=== PATIENT | female | born 1975 | race Caucasian/White ===

== ENCOUNTER 2022-12-26 15:49 | Emergency (ER) | payer MEDICARE, SELFPAY ==
[2022-12-26 15:56] VITALS: BP 176/98; PULSE 109; RESP 18; TEMP 36.8; O2SAT 100; BMI 28.9
[2022-12-26 16:00] VITALS: BP 176/98; PULSE 109; PULSE 98; RESP 14; RESP 20; O2SAT 94
--- NOTE | 2022-12-26 16:24 | ECG_ITS ---
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
--- NOTE | 2022-12-26 16:24 | XR_ITS ---
The [address] [address] Patient Name: LUCIO PARRA MRN: [id number] date: 1975 Sex: F Assigned Patient Location: ER Current Patient Location: ER Accession/Order Number: [id number] Exam Date: 12/26/2022 16:32 Report Date: 12/26/2022 16:52 At the request of: SHARYN MILNER Procedure: XR chest 1V EXAM: XR chest 1V HISTORY: cp COMPARISON: None. TECHNIQUE: AP view of the chest FINDINGS: The level of inspiration is suboptimal. There is no focal airspace consolidation. The cardiomediastinal silhouette is not enlarged. No evidence of pleural effusion or pneumothorax are identified. No acute osseous abnormality. IMPRESSION: No acute cardiopulmonary process. Electronically authenticated by: CALOS STEIN Date: 12/26/2022 16:52
--- NOTE | 2022-12-26 16:26 | ED_ITS ---
HPI - General Adult General Chief complaint: Seizure Stated complaint: FAST HEART RATE Time Seen by Provider: 12/26/22 16:24 Source: patient and family Mode of arrival: Wheelchair Limitations: no limitations History of Present Illness HPI narrative: Patient is a 39-year-old female who is presenting to the Emergency Room today with chief complaint of acute on chronic seizure. Patient is on multiple medications daily. Patient also has history of anxiety and panic attacks. Patient's significant other is at bedside. Patient takes BuSpar, clonidine, hydroxyzine, Lamictal, lisinopril, and Invega, Ingrezza. Patient is compliant with her medication. Patient's significant other is a main historian at bedside. Patient's been having more seizures this week than usual, but she's had this happened in the past as well. Patient had 2 or 3 seizures today. Patient will normally have 2 or 3 days a week where she does have a seizure. Patient has various types of seizures including tonic-clonic, focal, and absent's. Patient did not fall today. No head trauma. Patient has mild headache, mild nausea, mild chest pain, no tightness, no radiation of chest pain. No nausea, vomiting, diarrhea. Patient has no loss of urine or bowels and her pants. Patient states that she normally does not have any incontinence or bite her tongue during her seizures. . All systems are negative except as noted/marked. All systems reviewed and otherwise negative. . Nurses note and vital signs reviewed and patient is not hypoxic. General: The patient appears well and in no apparent distress. Patient is resting comfortably on cart. Patient is not toxic, lethargic, or listless Skin: Warm, dry, no pallor noted. There is no rash noted. No petechiae, purpura. Head: Normocephalic, atraumatic Eye: Normal conjunctiva, no drainage, EOMI. PERRL Ears, Nose, Mouth, and Throat: oral mucosa is moist. Nares patent. Mouth without vesicles. Cardiovascular: Regular Rate and Rhythm, no murmur, gallop, rub Respiratory: Patient is in no distress, no accessory muscle use, lungs are clear to auscultation, no wheezing, rales or rhonchi Back: non-tender, no CVA tenderness bilaterally to percussion. No CT LS midline pain GI: soft, no tenderness to palpation, no masses appreciated. No rebound, guarding, or rigidity noted. No flank pain bilateral, No distention Musculoskeletal: Patient has full range of motion of all of the extremities, no motor, sensory, or focal neurological deficits Neurological: A&O x3, normal speech, GCS 15 Psychiatric: Cooperative Related Data Home Medications Medication Instructions Recorded Confirmed buspirone 10 mg tablet 10 mg PO TID 12/26/22 12/26/22 clonidine HCl 0.1 mg tablet 0.1 mg PO DAILY 12/26/22 12/26/22 hydroxyzine pamoate 100 mg capsule 100 mg PO Q8H 12/26/22 12/26/22 lamotrigine 200 mg tablet 200 mg PO BID 12/26/22 12/26/22 (Lamictal) lisinopril 10 mg tablet 10 mg PO DAILY 12/26/22 12/26/22 paliperidone 6 mg tablet,extended 6 mg PO DAILY 12/26/22 12/26/22 release 24 hr (Invega) prednisone 5 mg tablet 5 mg PO DAILY 12/26/22 12/26/22 valbenazine 60 mg capsule 60 mg PO DAILY 12/26/22 12/26/22 (Ingrezza) Allergies Allergy/AdvReac Type Severity Reaction Status Date / Time lithium Allergy Intermediate Verified 12/26/22 16:01 Penicillins Allergy Intermediate Verified 12/26/22 16:01 Exam Constitutional: Vital Signs - 24 hr 12/26/22 15:56 12/26/22 16:00 12/26/22 16:00 Temperature 98.2 F Pulse Rate 98 H 109 H Pulse Rate [Monito r] 109 H Respiratory Rate 18 14 20 Blood Pressure 176/98 H Blood Pressure [Ri ght Arm] 176/98 H Pulse Oximetry 100 94 L Oxygen Delivery Me thod Room Air Course Vital Signs Vital signs: Vital Signs Temperature 98.2 F 12/26/22 15:56 Pulse Rate 109 H 12/26/22 15:56 Respiratory Rate 18 12/26/22 15:56 Blood Pressure 176/98 H 12/26/22 15:56 Pulse Oximetry 100 12/26/22 15:56 Oxygen Delivery Method Room Air 12/26/22 15:56 Temperature 98.2 F 12/26/22 15:56 Pulse Rate 109 H 12/26/22 16:00 Respiratory Rate 20 12/26/22 16:00 Blood Pressure 176/98 H 12/26/22 16:00 Pulse Oximetry 94 L 12/26/22 16:00 Oxygen Delivery Method Room Air 12/26/22 15:56 Medical Decision Making MDM Narrative Medical decision making narrative: Patient feels better after IV fluids and IV medication that has been given. Patient was given a prescription for 2 Klonopin 0.5 mg to use over the weekend t o help with anxiety and panic attacks. Patient's going back to [place] this and will call her neurologist on Thursday. We have called patient's neurologist from [place] twice, left 2 separate messages with no return phone call before 5 PM. EKG troponin show no acute changes, chest x-ray was negative. Dr Jennings His the neurologist in [place] that we have been calling Which is patient's neurologist no return phone call. Patient and significant other at bedside and no questions at discharge. Patient has not had a seizure in the Emergency Room. Patient felt better after IV Ativa n, which most likely help more with anxiety than seizure activity. Lab Data Lab results reviewed: Yes I reviewed the patient's lab results Labs: Lab Results 12/26/22 12/26/22 Range/Units 16:10 17:02 WBC 11.8 H (4.0-11.0) 10^3/uL RBC 4.98 (4.20-5.40) 10^6/uL Hgb 13.6 (12.0-16.0) g/dL Hct 41.5 (36.0-48.0) % MCV 83.3 (81.0-99.0) fL MCH 27.3 (26.7-34.0) pg MCHC 32.8 (29.9-35.2) g/dL RDW 14.5 (11.0-15.0) % Plt Count 227 (150-450) 10^3/uL MPV 10.0 (9.5-13.5) fL Neut % (Auto) 78.3 H (43.0-75.0) % Lymph % (Auto) 14.1 L (20.5-60.0) % Callahan % (Auto) 5.8 (1.7-12.0) % Eos % (Auto) 1.0 (0.9-7.0) % Baso % (Auto) 0.3 (0.2-2.0) % Neut # (Auto) 9.3 H (1.4-6.5) 10^3/uL Lymph # (Auto) 1.7 (1.2-3.8) 10^3/uL Callahan # (Auto) 0.7 (0.3-0.8) 10^3/uL Eos # (Auto) 0.1 (0.0-0.7) 10^3/uL Baso # (Auto) 0.0 (0.0-0.1) 10^3/uL Sodium 142 (136-145) mmol/L Potassium 4.0 (3.5-5.1) mmol/L Chloride 104 (98-107) mmol/L Carbon Dioxide 32.2 H (21.0-32.0) mmol/L Anion Gap 9.8 BUN 15.0 (7.0-18.0) mg/dL Creatinine 1.55 H (0.55-1.02) mg/dL Est GFR ( Amer) 43 L (>=60) Est GFR (Non-Af Amer) 36 L (>=60) BUN/Creatinine Ratio 9.7 Glucose 94 (74-106) mg/dL Calcium 10.3 H (8.5-10.1) mg/dL Total Bilirubin 0.5 (0.2-1.0) mg/dL AST 40 H (15-37) U/L ALT 69 H (14-59) U/L Troponin I High Sens 4.0 (4.0-51.3) pg/mL Total Protein 7.1 (6.4-8.2) g/dL Albumin 4.0 (3.4-5.0) g/dL Globulin 3.1 g/dL Albumin/Globulin Ratio 1.3 Lipase 135.0 (73.0-393.0) U/L ECG Data Attestation: I personally reviewed and interpreted this ECG as follows: Interpretation: EKG interpretation. Sinus tachycardia 112. Normal axis deviation. No acute ST elevation, no acute ectopy. QTC of 395 Discharge Plan Discharge Chief Complaint: Seizure Clinical Impression: Anxiety, Generalized seizure, Seizure disorder, Chest pain Patient Disposition: Home, Self-Care Condition: Good Prescriptions / Home Meds: No Action lisinopril 10 mg tablet 10 mg PO DAILY lamotrigine [Lamictal] 200 mg tablet 200 mg PO BID hydroxyzine pamoate 100 mg capsule 100 mg PO Q8H buspirone 10 mg tablet 10 mg PO TID prednisone 5 mg tablet 5 mg PO DAILY Ingrezza 60 mg capsule 60 mg PO DAILY paliperidone [Invega] 6 mg tablet extended release 24hr 6 mg PO DAILY clonidine HCl 0.1 mg tablet 0.1 mg PO DAILY Instructions: Chest Pain (ED), Recurrent Seizures in Adults (ED), Anxiety (ED) Additional Instructions: We have called her neurologist over 1 hour from the Emergency Room and left 2 messages with no return phone call. Follow-up with your neurologist on Thursday when he return to [place]. 2 tablets of Klonopin 0.5 mg tablets have been written for you to help with anxiety until Thursday. Continue to take Medication as prescribed. Stand Alone Forms: Portal Instructions Referrals: Physician,Non-Staff, MD [Primary Care Provider] - 1 week
--- NOTE | 2022-12-26 16:32 | PC.NURSE ---
THIS NURSE IN WITH DR MILNER TO EXAMINE PATIENT
[2022-12-26] MEDS: LORAZEPAM 2 MG/ML 1 ML VIAL 1 MG IV (16:40)
[2022-12-26] MEDS: ONDANSETRON PF 4 MG/2 ML VIAL IV (16:40)
[2022-12-26] MEDS: KETOROLAC TROMETHAMINE 30 MG/ML VIAL IVP (16:41)
[2022-12-26] MEDS: ASPIRIN 81 MG TAB.CHEW 162 MG PO (16:49)
[2022-12-26 16:52] LABS: Alanine Aminotransferase 69 U/L (14-59); Albumin Globulin Ratio 1.3; Alkaline Phosphatase 97 U/L (46-116); Anion Gap 9.8; Aspartate Amino Transferase 40 U/L (15-37); BUN Creatinine Ratio 9.7; Bilirubin Total 0.5 mg/dL (0.2-1.0); Calcium 10.3 mg/dL (8.5-10.1); Carbon Dioxide 32.2 mmol/L (21.0-32.0); Chloride 104 mmol/L (98-107); Estimated GFR (African America 43 (>=60); Estimated GFR (Non-African Ame 36 (>=60); Globulin 3.1 g/dL; Glucose 94 mg/dL (74-106); Sodium 142 mmol/L (136-145); Total Protein 7.1 g/dL (6.4-8.2)
--- NOTE | 2022-12-26 17:03 | PC.NURSE ---
WHEN THIS NURSE AND DR MILNER INTO SEE PATIENT AND SPOUSE SPOUSE STATES THE SHE HAS HAD 3 SEIZURES TODAY PT STATES SHE IS HAVING A SEIZURE NOW WE TALK TO PATIENT SHE STATES SHE HAS NO RESCUE MEDICATIONS AT HOME FOR HER HO SEIZURE STATES THE SEIZURE ARE WORSE THAN HER TYPICAL SEIZURE ACTIVITY DENIES LOSS OF BOWELS OR BLADDER DURING HER SEIZURE ACTIVITY SHE HAS A NEW NEUROLOGIST THAT SHE HAS NOT SEEN YET NAMED DR BRASHER AND WAS TOLD BY HIM THAT WHEN SHE GOES TO THE ER SHE CAN STATE HE IS HER NEUROLOGIST PT IS FROM [place] AND VISITING HER FAMILY AND WILL BE HERE TILL NEXT THURSDAY PT ADMITS TO HO ANXIETY AND PANIC ATTACKS T DOES ADMIT UPON FURTHER QUESTIONING THAT THESE ARE MORE LIKE PANIC ATTACKS VS SEIZURES PT THEN ASKS CAN I JUST HAVE A COUPLE OF ATIVAN FOR HOME DR MILNER TALKS ABOUT POSSIBLY KLONOPIN PT THEN STATES YES KLONOPIN HAS HELPED IN THE PAST SHE THEN STATES HER SEIZURES TEND TO HAPPEN WHEN HER BP IS UP
[2022-12-26 17:19] LABS: Basophils Percent Auto 0.3 % (0.2-2.0); Eosinophils Absolute Auto 0.1 10^3/uL (0.0-0.7); Hematocrit 41.5 % (36.0-48.0); Hemoglobin 13.6 g/dL (12.0-16.0); Immature Granulocytes Abs Auto 0.06 10^3/uL (0.00-0.03); Immature Granulocytes Pct Auto 0.5 % (0.0-0.5); Lymphocytes Absolute Auto 1.7 10^3/uL (1.2-3.8); Lymphocytes Percent Auto 14.1 % (20.5-60.0); Mean Corpuscular HGB Conc 32.8 g/dL (29.9-35.2); Mean Corpuscular Hemoglobin 27.3 pg (26.7-34.0); Mean Corpuscular Volume 83.3 fL (81.0-99.0); Monocytes Absolute Auto 0.7 10^3/uL (0.3-0.8); Monocytes Percent Auto 5.8 % (1.7-12.0); Neutrophils Absolute Auto 9.3 10^3/uL (1.4-6.5); Neutrophils Percent Auto 78.3 % (43.0-75.0); Platelet Count 227 10^3/uL (150-450); Red Blood Count 4.98 10^6/uL (4.20-5.40); Red Cell Distribution Width 14.5 % (11.0-15.0); White Blood Count 11.8 10^3/uL (4.0-11.0)
[2022-12-26 17:57] VITALS: BP 135/84; PULSE 78; RESP 18
== END 2022-12-26 18:02 | disposition home or self-care (01) ==
PROVIDERS: Emergency Provider Emergency Medicine
DX: G40.909 Epilepsy, unspecified, not intractable, without status epilepticus (principal); F41.9 Anxiety disorder, unspecified; R07.9 Chest pain, unspecified; Z79.899 Other long term (current) drug therapy
CPT/HCPCS: 36415; 71045; 80053; 83690; 84484; 85025; 93005; 96374; 96375; 99285

== ENCOUNTER 2023-09-18 08:12 | Outpatient (OUT) | payer MEDICARE, MEDICAID, SELFPAY ==
[2023-09-18 10:09] LABS: Alanine Aminotransferase 19 U/L (14-59); Albumin Globulin Ratio 0.8; Albumin Level 2.9 g/dL (3.4-5.0); Alkaline Phosphatase 149 U/L (46-116); Anion Gap 10.6; Aspartate Amino Transferase 10 U/L (15-37); BUN Creatinine Ratio 9.4; Bilirubin Total 0.4 mg/dL (0.2-1.0); Calcium 9.1 mg/dL (8.5-10.1); Carbon Dioxide 30.5 mmol/L (21.0-32.0); Chloride 107 mmol/L (98-107); Chol HDL Ratio 3.4; Cholesterol 177 mg/dL (<=200); Estimated GFR (African America 54 (>=60); Estimated GFR (Non-African Ame 45 (>=60); Globulin 3.6 g/dL; Glucose 110 mg/dL (74-106); HDL Cholesterol 52 mg/dL (40-60); LDL Cholesterol Calculated 105.2 mg/dL; Potassium 4.1 mmol/L (3.5-5.1); Sodium 144 mmol/L (136-145); Thyroid Stimulating Hormone 1.296 uIU/mL (0.358-3.740); Total Protein 6.5 g/dL (6.4-8.2); Triglycerides 99 mg/dL (<=150); VLDL CHOLESTEROL 19.8 mg/dL
== END 2023-09-18 08:13 | disposition home or self-care (01) ==
LOC: LAB 08:17
DX: Z79.899 Other long term (current) drug therapy (principal)
CPT/HCPCS: 36415; 80053; 80061; 84436; 84443

== ENCOUNTER 2024-04-09 11:39 | Emergency (ER) | payer MEDICARE, MEDICAID, SELFPAY ==
[2024-04-09 11:50] VITALS: BP 157/91; PULSE 122; TEMP 37; O2SAT 97; BMI 48.6
--- OUTSIDE RECORDS SUMMARY | 2024-04-09 11:59 | XMS_ITS | CCD ---
Author Organization [facility] ion [facility] Care Team Providers Care Tap Out Operator Name Role Phone [facility] Provide r DO Valentin Rangel Emergency Provider MD Julito Wilde Admit Provider MD Julito Wilde Attending Provider [phone] [facility] Provide r MD Julito Wilde Attending Provider [phone] [facility] Provide r MD Julito Wilde Attending Provider [phone] NO FAMILY, PHYSICIAN Primary Care Provider Unava MD Reina Watkins Emergency Provider [phone] [facility] Provide r MD Julito Wilde Attending Provider [phone] DO Garrett Gee Attending Provider [phone] GARRETT GEE Attending Unavailable GARRETT GEE Referring Unavailable LALO PECK Attending Unavailable LUCIO BROWN Attending Unavailable NO FAMILY, PHYSICIAN Primary Care Unavailable Reina Unger Admitting Unavailable Reina Unger Attending Unavailable Garrett Gee Admitting Unavailab le Garrett Gee Attending Unavailab le NO FAMILY, PHYSICIAN Primary Care Unavailable Julito Wilde Admitting Unavailab le Julito Wilde Attending Unavailab le [facility] Unav ailable Julito Wilde Admitting [facility] Julito Wilde Attending [facility] Unav ailable Allergies Allergy Classification Reported Allergen(s) Allergy Type Date of Onset Reaction(s) Facility (5 sources) [place]; Translations: [lithium] Drug Allergy 4 Kidney Failure [facility] (2 sources) Penicillin Drug Allergy 4 [facility] (3 sources) Penicillins; Translations: [Penicillins] Allergy to substance 4 [facility] Medications Current Medications Medication Drug Class(es) Dates Sig (Normalized) Sig (Original) acetaminophen 500 mg oral tablet (4 sources) Start: 2023 take 500 mg by mouth every six hours Acetaminophen Active 500 MG PO Every 6 hours 2023 12:00am [id number] 200 actuat albuterol 0.09 mg/actuat metered dose inhaler (5 sources) beta2-Adrenergic Agonist Start: 10-08-2023 take 1 puff(s) by inhalation every four hours Albuterol Sulfate Active 2 PUFF INHALATION Every 4 hours October 08, 2023 12:00am atomoxetine 25 mg oral capsule (6 sources) Norepinephrine Reuptake Inhibitor Start: 10-08-2023 take 25 mg by mouth once daily Atomoxetine Active 25 MG PO Daily October 08, 2023 12:00am azelastine hydrochloride 0.137 mg/actuat metered dose nasal spray (5 sources) Histamine-1 Receptor Antagonist Start: 10-08-2023 Azelastine Active 1 SPRAY INTRANASAL Twice daily October 08, 2023 12:00am 120 actuat budesonide 0.08 mg/actuat / formoterol fumarate 0.0045 mg/actuat metered dose inhaler (4 sources) Corticosteroid, beta2-Adrenergic Agonist Start: 2023 Budesonide-Formote rol Active INHALATION 2023 12:00am busPIRone hydrochloride 5 mg oral tablet (11 sources) Start: 10-11-2023 take 5 mg by mouth twice daily Buspirone Active 5 MG PO Twice daily 15 October 11, 2023 12:00am Start: 10-08-2023 take 15 mg by mouth four times daily Buspirone Active 15 MG PO Four times daily October 08, 2023 12:00am cetirizine hydrochloride 10 mg oral tablet (4 sources) Histamine-1 Receptor Antagonist Start: 2023 take 1 tablet by mouth once daily Cetirizine (Allergy Relief (Cetirizine)) 10 mg tablet Active 10 MG PO daily 14 2023 12:00am 0.5 ml dulaglutide 1.5 mg/ml auto-injector (6 sources) GLP-1 Receptor Agonist Start: 10-08-2023 Dulaglutide (Trulicity) 0.75 mg/0.5 mL pen injector Active 0.75 MG SUBCUT every week October 08, 2023 12:00am fluticasone propionate 0.05 mg/actuat metered dose nasal spray (4 sources) Corticosteroid Start: 2023 take 1 spray(s) nasal route twice daily Fluticasone Propionate (Flonase Allergy Relief) 50 mcg/actuation spray,suspension Active 1 SPRAY INTRANASAL Twice daily 2023 12:00am administer 1 spray into each nostril gabapentin 600 mg oral tablet (15 sources) Anti-epileptic Agent Start: 2023 take 600 mg by mouth three times daily Gabapentin Active 600 MG PO Three times daily 2023 12:00am Start: 10-11-2023 End: 2023 take 400 mg by mouth three times daily Gabapentin Discontinued 400 MG PO Three times daily October 11, 2023 12:00am 2023 12:39pm Start: 10-08-2023 End: 10-11-2023 take 200 mg by mouth three times daily Gabapentin Discontinued 200 MG PO Three times daily October 08, 2023 12:00am October 11, 2023 8:16am hydroxychloroquine sulfate 200 mg oral tablet (6 sources) Antimalarial, Antirheumatic Agent Start: 10-08-2023 take 200 mg by mouth twice daily Hydroxychloroquine Active 200 MG PO Twice daily October 08, 2023 12:00am hydrOXYzine pamoate 50 mg oral capsule (4 sources) Antihistamine Start: 2023 take 50 mg by mouth three times daily Hydroxyzine Pamoate Active 50 MG PO Three times daily 2023 12:00am lamoTRIgine 200 mg oral tablet (6 sources) Mood Stabilizer, Anti-epileptic Agent Start: 10-08-2023 take 200 mg by mouth twice daily Lamotrigine Active 200 MG PO Twice daily October 08, 2023 12:00am nystatin [id number] unt/ml oral suspension (6 sources) Polyene Antifungal Start: 11-06-2023 take 1 mL by mouth four times daily Nystatin Active 5 ML PO Four times daily 140 7 November 06, 2023 12:00am swish and swallow Start: 11-06-2023 Nystatin Activ e 1 APPLIC TOPICAL Twice daily November 06, 2023 12:00am to rash omeprazole 40 mg delayed release oral capsule (6 sources) Proton Pump Inhibitor Start: 10-08-2023 take 40 mg by mouth once daily Omeprazole Active 40 MG PO Daily October 08, 2023 12:00am prazosin 5 mg oral capsule (6 sources) alpha-Adrenergic Nikkie Start: 10-08-2023 take 5 mg by mouth three times daily Prazosin Active 5 MG PO Three times daily October 08, 2023 12:00am predniSONE 5 mg oral tablet (6 sources) Start: 10-08-2023 take 5 mg by mouth once daily Prednisone Active 5 MG PO Daily October 08, 2023 12:00am triamcinolone acetonide 1 mg/ml topical cream (10 sources) Corticosteroid Start: 10-10-2023 Triamcinolone Acetonide Active 1 APPLIC TOPICAL Twice daily 1 October 10, 2023 12:00am Start: 10-08-2023 Triamcinolone Acetonide Active 1 APPLIC TOPICAL Twice daily October 08, 2023 12:00am Valbenazine (6 sources) Start: 10-08-2023 take 1 capsule by mo uth once daily Valbenazine (Ingrezza) 60 mg capsule Active 60 MG PO Daily October 08, 2023 12:00am Problems Active Problems Problem Classification Problem Date Documented Da te Episodic/Chronic Mood disorders (10 sources) Major depressive disorder; Translations: [Major depressive disorder, single episode, unspecified] Onset: 10-08-2023 10-08-2023 Chronic Mycoses (6 sources) Candidal stomatitis; Translations: [Candidiasis of mouth] 11-06-2023 Episodic Other nervous system disorders (1 source) Ataxia, unspecified; Translations: [Ataxia, unspecified] Onset: 02-01-2024 Episodic Other upper respiratory disease (2 sources) Allergic rhinitis, unspecified; Translations: [Allergic rhinitis, cause unspecified] 2023 Chronic Other upper respiratory disease (3 sources) Nasal congestion; Translations: [Other disease of nasal cavity and sinuses] 2023 Episodic Past or Other Problems Problem Classification Problem Date Documented Da te Episodic/Chronic Residual codes; unclassified (1 source) Localized edema; Translations: [Localized edema] Onset: 12-21-2023 Episodic Unclassified (2 sources) Lower extremity edema 12-21-2023 Results Test Name Value Interpretation Reference Range Facility MR head/brain wo/w conon MR head/brain wo/w con [facility] [place] [address] MRI Report Signed Patient: Lucio Gonzalez MR#: [id number] 16 : 1975 Acct:[id number] Age/Sex: 48 / F ADM Date: 02/01/24 Loc: MR Room: Type: [facility] Attending Dr: Garrett Gee DO Copies to: Garrett Gee DO Ordering Provider: Garrett Gee DO Date of Service: 02/01/24 MR/MR head/brain wo/w con: R27.0, G40.909 MR head/brain wo/w con 02/01/2024 8:04 PM SIGN AND SYMPTOMS: Memory loss, seizures PROTOCOL: Multiplanar multisequence MR images of brain were obtained with and without IV contrast CONTRAST: 20 mL of intravenous ProHance COMPARISON: None. FINDINGS: Images are degraded by patient motion. Extra axial spaces: Age appropriate. Hemorrhage: None. Ventricular system: Within normal limits. Basal cisterns: Within normal limits and not effaced. Cerebral parenchyma: Normal in signal. Midline shift: None.. Cerebellum: Within normal limits. Brainstem: Within normal limits. OTHER: Calvarium: Normal marrow signal. Vascular system: Satisfactory flow voids within the anterior and posterior circulation. Visualized Paranasal sinuses: Within normal limits. Visualized Orbits: Within normal limits. Visualized upper cervical spine: Within normal limits. Sella and skull base: Within normal limits. MR/MR head/brain wo/w con IMPRESSION: No acute intracranial pathology or abnormal postcontrast enhancement. Images are degraded by patient motion. Impression dictated by: Fly Pierce M.D.02/02/2024 12:16 PM Dictation Location: [place] [address] Transcribed By: HARMAN 02/02/24 1216 Dictated By: Fly Pierce II, MD 02/02/24 1208 Signed By: 02/02/24 1216 Normal [facility] Alanine aminotransferase [En zymatic activity/volume] in Serum or PlasmaOrdered By: Reina Unger on 12-21-2023 ALT [Catalytic activity/Vol] 23 U/L Normal 7-52 [facility] Comment on above: Performed By: #### C BC, CMP, BNP, CK, HS TROP #### [facility] [address] [place] [address] [place] Albumin [Mass/volume] in Ser um or Plasma by Bromocresol green (BCG) dye binding methoOrdered By: Reina Unger on 12-21-2023 Albumin BCG dye [Mass/Vol] 4.0 g/dL 3.5-5.7 [facility] Alkaline phosphatase [Enzyma tic activity/volume] in Serum or PlasmaOrdered By: Reina Unger on 12-21-2023 ALP [Catalytic activity/Vol] 118 U/L High 34-104 [facility] Comment on above: Performed By: #### C BC, CMP, BNP, CK, HS TROP #### [facility] [address] [place] [address] Aspartate aminotransferase [ Enzymatic activity/volume] in Serum or PlasmaOrdered By: Reina Unger on 12-21-2023 AST [Catalytic activity/Vol] 25 U/L Normal 13-39 [facility] Comment on above: Performed By: #### C BC, CMP, BNP, CK, HS TROP #### [facility] [address] [place] [address] [place] Automated basophil %Ordered By: Reina Unger on 12-21-2023 Basophils/100 WBC (Bld) 0.7 % Normal . [facility] Comment on above: Performed By: #### C BC, CMP, BNP, CK, HS TROP #### [address] Automated basophil countOrde red By: Reina Unger on 12-21-2023 Basophils (Bld) [#/Vol] 0.1 10*3/uL Normal 0.0-0.2 [facility] Comment on above: Result Comment: PERF ORMED BY: [place] [address] PATHOLOGIST STRAIGHT TOOTH GEAR GENERATOR OPERATOR MIKI PEPPER M.D. Performed By: #### C BC, CMP, BNP, CK, HS TROP #### [address] Automated blood monocyte cou ntOrdered By: Reina Unger on 12-21-2023 Monocytes (Bld) [#/Vol] 0.6 10*3/uL Normal 0.0-0.8 [facility] Comment on above: Performed By: #### C BC, CMP, BNP, CK, HS TROP #### [address] Automated eosinophil %Ordere d By: Reina Unger on 12-21-2023 Eosinophils/100 WBC (Bld) 0.5 % Normal . [facility] Comment on above: Performed By: #### C BC, CMP, BNP, CK, HS TROP #### [address] Automated eosinophil countOr dered By: Reina Unger on 12-21-2023 Eosinophils (Bld) [#/Vol] 0.0 10*3/uL Normal 0.0-0.45 [facility] Comment on above: Performed By: #### C BC, CMP, BNP, CK, HS TROP #### [address] Automated epithelial cells c ount in urine sediment (number/area)Ordered By: Reina Unger on 12-21-2023 Epithelial cells Auto (Urine sed) [#/Area] 3-4 [HPF] High 0-2 [facility] Automated monocyte %Ordered By: Reina Unger on 12-21-2023 Monocytes/100 WBC (Bld) 7.1 % Normal . [facility] Comment on above: Performed By: #### C BC, CMP, BNP, CK, HS TROP #### [address] Automated neutrophil %Ordere d By: Reina Unger on 12-21-2023 Neutrophils/100 WBC (Bld) 75.9 % Normal . [facility] Comment on above: Performed By: #### C BC, CMP, BNP, CK, HS TROP #### [address] BNP ser/plasOrdered By: Reina Unger on 12-21-2023 Natriuretic peptide B (Bld) [Mass/Vol] 16.0 pg/mL Normal 5-100 [facility] Comment on above: Result Comment: PERF ORMED BY: [place] [address] PATHOLOGIST STRAIGHT TOOTH GEAR GENERATOR OPERATOR MIKI PEPPER M.D. Performed By: #### C BC, CMP, BNP, CK, HS TROP #### [address] Bacteria [Presence] in Urine by AutomatedOrdered By: Reina Unger on 12-21-2023 Bacteria Auto Ql (U) 1+ [HPF] High None Seen [facility] Bilirubin Test strip Ql (U)O rdered By: Reina Unger on 12-21-2023 Bilirubin Ql (U) Negative Negative [facility] Bilirubin.total [Mass/volume ] in Serum or PlasmaOrdered By: Reina Unger on 12-21-2023 Bilirubin [Mass/Vol] 0.7 mg/dL Normal 0.3-1.0 [facility] Comment on above: Performed By: #### C BC, CMP, BNP, CK, HS TROP #### [address] Calcium [Mass/volume] in Ser um or PlasmaOrdered By: Reina Unger on 12-21-2023 Calcium [Mass/Vol] 9.5 mg/dL Normal 8.6-10.3 [facility] Comment on above: Performed By: #### C BC, CMP, BNP, CK, HS TROP #### [address] Carbon dioxide, total [Moles /volume] in Serum or PlasmaOrdered By: Reina Unger on 12-21-2023 CO2 [Moles/Vol] 28.8 mmol/L Normal 21.0-31.0 [facility] Comment on above: Performed By: #### C BC, CMP, BNP, CK, HS TROP #### [address] Chloride [Moles/volume] in S loreta or PlasmaOrdered By: Reina Unger on 12-21-2023 Chloride [Moles/Vol] 102 mmol/L Normal 98-107 [facility] Comment on above: Performed By: #### C BC, CMP, BNP, CK, HS TROP #### [address] Color of Urine by AutoOrdere d By: Reina Unger on 12-21-2023 Color (U) Yellow Normal Yellow [facility] Comment on above: Order Comment: Name Collection Type:: Clean-Voided Midstream Performed By: #### A DDONUAPLUS #### [address] Complete Blood Count Auto Di ffon 12-21-2023 Mean Corpuscular HGB Conc 32.6 g/dL Normal 32.0-35.0 [facility] Comment on above: Performed By: #### C BC, CMP, BNP, CK, HS TROP #### [place] [address] [place] Monocytes/100 WBC (Bld) 17.43 % Normal 0.00-20.00 [facility] Comment on above: Performed By: #### C BC, CMP, BNP, CK, HS TROP #### [address] NRBC% 0.1 /100{WBC} Normal 0-0.5 [facility] Comment on above: Performed By: #### C BC, CMP, BNP, CK, HS TROP #### [facility] [address] Comprehensive Metabolic Pane mariama 12-21-2023 Albumin [Mass/Vol] 4.0 g/dL Normal 3.5-5.7 [facility] Comment on above: Performed By: #### C BC, CMP, BNP, CK, HS TROP #### [address] Creatinine Clr Calc Pharmacy 74.05 Normal [facility] Comment on above: Result Comment: PERF ORMED BY: [place] [address] PATHOLOGIST STRAIGHT TOOTH GEAR GENERATOR OPERATOR MIKI PEPPER M.D. Performed By: #### C BC, CMP, BNP, CK, HS TROP #### [address] GFR/1.73 sq M.predicted MDRD (S/P/Bld) [Vol rate/Area] 44.218 mL/min/{1.73_m2} Normal [facility] Comment on above: Performed By: #### C BC, CMP, BNP, CK, HS TROP #### [address] Creatine kinase [Enzymatic a ctivity/volume] in Serum or PlasmaOrdered By: Reina Unger on 12-21-2023 CK [Catalytic activity/Vol] 89 U/L Normal 30-223 [facility] Comment on above: Performed By: #### C BC, CMP, BNP, CK, HS TROP #### [address] Creatinine [Mass/volume] in Serum or PlasmaOrdered By: Reina Unger on 12-21-2023 Creatinine [Mass/Vol] 1.45 mg/dL High 0.60-1.20 [facility] Comment on above: Performed By: #### C BC, CMP, BNP, CK, HS TROP #### [place] [address] [place] Dipstick and Microscopicon 0 12-21-2023 Appearance (U) Clear Normal Clear [facility] Comment on above: Order Comment: Name Collection Type:: Clean-Voided Midstream Performed By: #### A DDONUAPLUS #### [place] [address] [place] Bacteria,Urine 1+ High None Seen [facility] Comment on above: Order Comment: Name Collection Type:: Clean-Voided Midstream Performed By: #### A DDONUAPLUS #### [address] Bilirubin,Urine Negative Normal Negative [facility] Comment on above: Order Comment: Name Collection Type:: Clean-Voided Midstream Performed By: #### A DDONUAPLUS #### [address] Glucose Ql (U) >=1000 High Normal [facility] Comment on above: Order Comment: Name Collection Type:: Clean-Voided Midstream Performed By: #### A DDONUAPLUS #### [place] [address] [place] Hyaline Casts,Urine 0-8 Normal 0-8 [facility] Comment on above: Order Comment: Name Collection Type:: Clean-Voided Midstream Result Comment: PERF ORMED BY: [place] [address] PATHOLOGIST STRAIGHT TOOTH GEAR GENERATOR OPERATOR MIKI PEPPER M.D. Performed By: #### A DDONUAPLUS #### [address] Ketones Ql (U) Negative Normal Negative [facility] Comment on above: Order Comment: Name Collection Type:: Clean-Voided Midstream Performed By: #### A DDONUAPLUS #### [place] [address] [place] Leukocyte esterase Test strip Ql (U) Negative Normal Negative [facility] Comment on above: Order Comment: Name Collection Type:: Clean-Voided Midstream Performed By: #### A DDONUAPLUS #### [address] Nitrite,Urine Negative Normal Negative [facility] Comment on above: Order Comment: Name Collection Type:: Clean-Voided Midstream Performed By: #### A DDONUAPLUS #### [address] Occult Blood,Urine Trace High Negative [facility] Comment on above: Order Comment: Name Collection Type:: Clean-Voided Midstream Result Comment: PERF ORMED BY: [place] [address] PATHOLOGIST STRAIGHT TOOTH GEAR GENERATOR OPERATOR MIKI PEPPER M.D. Performed By: #### A DDONUAPLUS #### [address] Protein,Urine Negative Normal Negative [facility] Comment on above: Order Comment: Name Collection Type:: Clean-Voided Midstream Performed By: #### A DDONUAPLUS #### [place] [address] [place] RBC,Urine 3-4 Normal 0-4 [facility] Comment on above: Order Comment: Name Collection Type:: Clean-Voided Midstream Performed By: #### A DDONUAPLUS #### [place] [address] [place] Specificy [place],Urine 1.016 Normal 1.001-1.030 [facility] Comment on above: Order Comment: Name Collection Type:: Clean-Voided Midstream Performed By: #### A DDONUAPLUS #### [place] [address] [place] Squamous Epithelial Cell,Urine 3-4 High 0-2 [facility] Comment on above: Order Comment: Name Collection Type:: Clean-Voided Midstream Performed By: #### A DDONUAPLUS #### [place] [address] [place] Urobilinogen,Urine Normal Normal Normal [facility] Comment on above: Order Comment: Name Collection Type:: Clean-Voided Midstream Performed By: #### A DDONUAPLUS #### [place] [address] [place] WBC,Urine 3-4 Normal 0-4 [facility] Comment on above: Order Comment: Name Collection Type:: Clean-Voided Midstream Performed By: #### A DDONUAPLUS #### [facility] [address] [place] [address] ECG 12 lead ECGon 12-21-2023 ECG 12 lead ECG [facility] [place] [address] [place] [address] Electrocardiograph Report Signed Patient: Lucio Gonzalez MR#: [id number] 16 : 1975 Acct:[id number] Age/Sex: 48 / F ADM Date: 12/21/23 Loc: ER Room: Type: [facility] ER Attending Dr: Ordering Provider: Reina Unger MD Date of Service: 12/21/23 ECG/ECG 12 lead ECG: Extremity Problem, Nontraumatic Copies to: Test Reason : Blood Pressure : 128/071 mmHG Vent. Rate : 112 BPM Atrial Rate : 112 BPM P-R Int : 138 ms QRS Dur : 074 ms QT Int : 360 ms P-R-T Axes : 051 033 064 degrees QTc Int : 491 ms Sinus tachycardia Low voltage QRS Cannot rule out Anterior infarct , age undetermined Abnormal ECG When compared with ECG of 09-OCT-2023 10:05, Minimal criteria for Anterior infarct are now present Confirmed by REINA UNGER MD ([id number]) on 12/21/2023 3:04:15 PM Referred By: Electronically Signed By:REINA UNGER MD Transcribed By: MUS Signed By Reina Unger MD 12/21/23 1504 Normal [facility] Erythrocyte distribution wid th [Ratio] by Automated countOrdered By: Reina Unger on 12-21-2023 Erythrocyte distribution width (RBC) [Ratio] 16.2 % High 11.9-15.3 [facility] Comment on above: Performed By: #### C BC, CMP, BNP, CK, HS TROP #### [facility] [address] [place] [address] Erythrocytes [#/area] in Uri ne sediment by Automated countOrdered By: Reina Unger on 12-21-2023 RBC Auto (Urine sed) [#/Area] 3-4 [HPF] 0-4 [facility] Erythrocytes [#/volume] in B lood by Automated countOrdered By: Reina Unger on 12-21-2023 RBC (Bld) [#/Vol] 5.64 10*6/uL High 3.60-5.00 [facility] Comment on above: Performed By: #### C BC, CMP, BNP, CK, HS TROP #### [address] Glucose [Mass/volume] in Ser um or PlasmaOrdered By: Reina Unger on 12-21-2023 Glucose [Mass/Vol] 333 mg/dL High 70-100 [facility] Comment on above: ADA recommended refe rence rangeRandom Glucose Reference Range is dependent on time and content of last meal. Glucose of more than 200 mg/dL in a nonstressed, ambulatory subject supports the diagnosis of Diabetes Mellitus. Result Comment: [place] om Glucose Reference Range is dependent on time and content of last meal. Glucose of more than 200 mg/dL in a nonstressed, ambulatory subject supports the diagnosis of Diabetes Mellitus. ADA recommended reference range Performed By: #### C BC, CMP, BNP, CK, HS TROP #### [address] Hematocrit [Volume Fraction] of Blood by Automated countOrdered By: Reina Unger on 12-21-2023 Hematocrit (Bld) [Volume fraction] 43.3 % Normal 34.0-46.4 [facility] Comment on above: Performed By: #### C BC, CMP, BNP, CK, HS TROP #### [address] Hemoglobin [Mass/volume] in BloodOrdered By: Reina Unger on 12-21-2023 Hemoglobin (Bld) [Mass/Vol] 14.1 g/dL Normal 11.8-15.4 [facility] Comment on above: Performed By: #### C BC, CMP, BNP, CK, HS TROP #### [address] Ketones Auto test strip (U) [Mass/Vol]Ordered By: Reina Unger on 12-21-2023 Ketones (U) [Mass/Vol] Negative Negative [facility] - UrinalysisOrder ed By: Reina Unger on 12-21-2023 Hyaline casts LM Ql (Urine sed) 0-8 [LPF] 0-8 [facility] Leukocytes [#/area] in Urine sediment by Automated countOrdered By: Reina Unger on 12-21-2023 WBC Auto (Urine sed) [#/Area] 3-4 [HPF] 0-4 [facility] Leukocytes [#/volume] correc gala for nucleated erythrocytes in Blood by Automated counOrdered By: Reina Unger on 12-21-2023 WBC corrected for nucl RBC Auto (Bld) [#/Vol] 8.2 10*3/uL 3.8-11.6 [facility] Leukocytes [#/volume] in Blo od by Automated countOrdered By: Reina Unger on 12-21-2023 WBC (Bld) [#/Vol] 8.2 10*3/uL Normal 3.8-11.6 [facility] Comment on above: Performed By: #### C BC, CMP, BNP, CK, HS TROP #### [facility] [address] [place] [address] [place] Lymphocytes [#/volume] in Bl ood by Automated countOrdered By: Reina Unger on 12-21-2023 Lymphocytes (Bld) [#/Vol] 1.3 10*3/uL Normal 1.00-4.8 [facility] Comment on above: Performed By: #### C BC, CMP, BNP, CK, HS TROP #### [facility] [address] [place] [address] [place] Lymphocytes/100 leukocytes i n Blood by Automated countOrdered By: Reina Unger on 12-21-2023 Lymphocytes/100 WBC (Bld) 15.8 % Normal . [facility] Comment on above: Performed By: #### C BC, CMP, BNP, CK, HS TROP #### [facility] [address] [place] [address] [place] MCH [Entitic mass] by Automa gala countOrdered By: Reina Unger on 12-21-2023 MCH (RBC) [Entitic mass] 25.1 pg Normal 24.7-34.3 [facility] Comment on above: Performed By: #### C BC, CMP, BNP, CK, HS TROP #### [facility] [address] [place] [address] MCHC Auto (RBC) [Mass/Vol]Or dered By: Reina Unger on 12-21-2023 MCHC (RBC) [Mass/Vol] 32.6 g/dL 32.0-35.0 [facility] MCV [Entitic volume] by Auto mated countOrdered By: Reina Unger on 12-21-2023 MCV (RBC) [Entitic vol] 76.8 fL Low 80-100 [facility] Comment on above: Performed By: #### C BC, CMP, BNP, CK, HS TROP #### [facility] [address] [place] [address] Monocyte distribution width [Entitic volume] in Blood by AutomatedOrdered By: Reina Unger on 12-21-2023 Monocyte distribution width Auto (Bld) [Entitic vol] 17.43 % 0.00-20.00 [facility] Neutrophils [#/volume] in Bl ood by Automated countOrdered By: Reina Unger on 12-21-2023 Neutrophils (Bld) [#/Vol] 6.2 10*3/uL Normal 1.8-7.7 [facility] Comment on above: Performed By: #### C BC, CMP, BNP, CK, HS TROP #### [facility] [address] [place] [address] Nitrite Test strip Ql (U)Ord ered By: Reina Unger on 12-21-2023 Nitrite Ql (U) Negative Negative [facility] No Panel InformationOrdered By: Reina Unger on 12-21-2023 Estimated GFR (CKD-EPI) 44.218 mL/Min [facility] Creatinine Clearance (Chem 74.05 [facility] Nucleated erythrocytes [Pres ence] in Blood by Automated countOrdered By: Reina Unger on 12-21-2023 Nucleated RBC Auto Ql (Bld) 0.1 /100{WBC} 0-0.5 [facility] Platelet mean volume [Entiti c volume] in Blood by Automated countOrdered By: Reina Unger on 12-21-2023 Platelet mean volume (Bld) [Entitic vol] 9.3 fL Normal 6.3-10.7 [facility] Comment on above: Performed By: #### C BC, CMP, BNP, CK, HS TROP #### [facility] [address] Platelets [#/volume] in Bloo d by Automated countOrdered By: Reina Unger on 12-21-2023 Platelets (Bld) [#/Vol] 222 10*3/uL Normal 150-450 [facility] Comment on above: Performed By: #### C BC, CMP, BNP, CK, HS TROP #### [address] Potassium [Moles/volume] in Serum or PlasmaOrdered By: Reina Unger on 12-21-2023 Potassium [Moles/Vol] 4.1 mmol/L Normal 3.5-5.1 [facility] Comment on above: Performed By: #### C BC, CMP, BNP, CK, HS TROP #### [address] Protein Auto test strip (U) [Mass/Vol]Ordered By: Reina Unger on 12-21-2023 Protein (U) [Mass/Vol] Negative Negative [facility] Protein [Mass/volume] in Ser um or PlasmaOrdered By: Reina Unger on 12-21-2023 Protein [Mass/Vol] 6.4 g/dL Normal 6.4-8.9 [facility] Comment on above: Performed By: #### C BC, CMP, BNP, CK, HS TROP #### [address] Serum globulin measurement b y calculation (mass/volume)Ordered By: Reina Unger on 12-21-2023 Globulin (S) [Mass/Vol] 2.4 g/dL Normal [facility] Comment on above: Performed By: #### C BC, CMP, BNP, CK, HS TROP #### [address] Serum or plasma albumin/glob ulin mass ratioOrdered By: Reina Unger on 12-21-2023 Albumin/Globulin [Mass ratio] 1.7 {ratio} Normal [facility] Comment on above: Performed By: #### C BC, CMP, BNP, CK, HS TROP #### [address] Serum or plasma anion gap de terminationOrdered By: Reina Unger on 12-21-2023 Anion gap [Moles/Vol] 10.3 mmol/L Normal 6.0-15.0 [facility] Comment on above: Performed By: #### C BC, CMP, BNP, CK, HS TROP #### [address] Sodium [Moles/volume] in Ser um or PlasmaOrdered By: Reina Unger on 12-21-2023 Sodium [Moles/Vol] 137 mmol/L Normal 136-145 [facility] Comment on above: Performed By: #### C BC, CMP, BNP, CK, HS TROP #### [address] Specific gravity Auto test s trip (U) [Rel density]Ordered By: Reina Unger on 12-21-2023 Specific gravity (U) [Rel density] 1.016 1.001-1.030 [facility] Troponin I High Sensitivityo n 12-21-2023 Troponin I High Sensitivity 7.3 pg/mL Normal 0.0-15.0 [facility] Comment on above: Result Comment: PERF ORMED BY: [place] [address] PATHOLOGIST STRAIGHT TOOTH GEAR GENERATOR OPERATOR MIKI PEPPER M.D. Performed By: #### C BC, CMP, BNP, CK, HS TROP ####[facility] Troponin I.cardiac [Mass/vol ume] in Serum or Plasma by Detection limit <= 0.01 ng/Ordered By: Reina Unger on 12-21-2023 Troponin I.cardiac DL <= 0.01 ng/mL [Mass/Vol] 7.3 pg/mL 0.0-15.0 [facility] Urea nitrogen [Mass/volume] in Serum or PlasmaOrdered By: Reina Unger on 12-21-2023 Urea nitrogen [Mass/Vol] 9 mg/dL Normal 7-25 [facility] Comment on above: Performed By: #### C BC, CMP, BNP, CK, HS TROP #### [facility] [address] [place] [address] Urine clarity by refractomet ry automatedOrdered By: Reina Unger on 12-21-2023 Clarity Refractometry automated (U) Clear Clear [facility] Urine glucose measurement by automated test strip (mass/volume)Ordered By: Reina Unger on 12-21-2023 Glucose Auto test strip (U) [Mass/Vol] >=1000 mg/dL High Normal [facility] Urine hemoglobin detection b y automated test stripOrdered By: Reina Unger on 12-21-2023 Hemoglobin Auto test strip Ql (U) Trace High Negative [facility] Urine leukocyte esterase det ection by automated test stripOrdered By: Reina Unger on 12-21-2023 Leukocyte esterase Auto test strip Ql (U) Negative Negative [facility] Urine pH measurement by auto mated test stripOrdered By: Reina Unger on 12-21-2023 pH (U) 5.5 [pH] Normal 5.0-9.0 [facility] Comment on above: Order Comment: Name Collection Type:: Clean-Voided Midstream Performed By: #### A DDONUAPLUS #### [facility] [address] [place] [address] Urobilinogen Auto test strip (U) [Mass/Vol]Ordered By: Reina Unger on 12-21-2023 Urobilinogen (U) [Mass/Vol] Normal mg/dL Normal [facility] XR chest 1V portableon 12-20 XR chest 1V portable [facility] [place] [address] XRay Report Signed Patient: Lucio Gonzalez MR#: [id number] 16 : 1975 Acct:[id number] Age/Sex: 48 / F ADM Date: 12/21/23 Loc: ER Room: Type: [facility] ER Attending Dr: Copies to: Reina Unger MD Ordering Provider: Reina Unger MD Date of Service: 12/21/23 XR/XR chest 1V portable: Extremity Problem, Nontraumatic XR chest 1V portable 12/21/2023 12:47 PM SIGNS AND SYMPTOMS: Swelling in lower extremities PROTOCOL: Frontal radiograph of the chest COMPARISON: None FINDINGS: The trachea is midline. The heart and mediastinal structures are within normal limits. The lung parenchyma is clear. The bony thorax is intact. XR/XR chest 1V portable IMPRESSION: No acute cardiopulmonary pathology. Impression dictated by: Fly Pierce M.D.12/21/2023 1:16 PM Dictation Location: RADIO-PC-13 Transcribed By: [facility] 12/21/23 131 Dictated By: Fly Pierce II, MD 12/21/231315 Signed By: 12/21/23 1316 Normal [facility] Influenza virus A and B and SARS-CoV-2 (COVID-19) RNA panel - Respiratory system specon 2023 Influenza virus A and B RNA and SARS-CoV-2 (COVID-19) N gene panel ENDY+probe (Resp) Negative [facility] - Microbiology an d Antimicrobial susceptibilityon 2023 SARS-CoV-2 (COVID-19) RNA ENDY+probe Ql (Unsp spec) Negative [facility] No Panel Informationon 10-31 POC Influenza B (ENDY) Negative [facility] Cholesterol [Mass/volume] in Serum or PlasmaOrdered By: Julito Wilde on 10-09-2023 Cholesterol [Mass/Vol] 176 mg/dL Normal 140-200 [facility] Comment on above: Chol less than 200 m g/dl low riskChol 201-239 mg/dl borderline riskChol 240 mg/dl and greater high risk Result Comment: Chol less than 200 mg/dl low risk Chol 201-239 mg/dl borderline risk Chol 240 mg/dl and greater high risk Performed By: #### T SH3 wRFLX, [id number], LIPID ####[facility] [id number] [place] [id number] [facility] Cholesterol in LDL Calc [Mas s/Vol]Ordered By: Julito Wilde on 10-09-2023 Cholesterol in LDL [Mass/Vol] 94 mg/dL 0-100 [facility] Comment on above: LDL ATP III CLASSIFI CATIONLDL less than 100 mg/dL OptimalLDL 100-129 mg/dL Near or above optimalLDL 130-159 mg/dL Borderline highLDL 160-189 mg/dL HighLDL greater than 189 mg/dL Very high Cholesterol in VLDL Calc [Ma ss/Vol]Ordered By: Julito Widle on 10-09-2023 Cholesterol in VLDL [Mass/Vol] 23 mg/dL [facility] ECG 12 lead ECGon 10-09-2023 ECG 12 lead ECG [facility] [place] [address] [place] [address] Electrocardiograph Report Signed Patient: Lucio Gonzalez MR#: [id number] 16 : 1975 Acct:[id number] Age/Sex: 47 / F ADM Date: 10/08/23 Loc: Room: [address] [place] [address] Type: ADM IN Attending Dr: Julito Wilde MD Ordering Provider: Julito Wilde MD Date of Service: 10/09/23 ECG/ECG 12 lead ECG: medications Copies to: Test Reason : Blood Pressure : / mmHG Vent. Rate : 109 BPM Atrial Rate : 109 BPM P-R Int : 130 ms QRS Dur : 074 ms QT Int : 334 ms P-R-T Axes : 054 022 033 degrees QTc Int : 449 ms Sinus tachycardia Possible Left atrial enlargement Borderline ECG No previous ECGs available Confirmed by KAROLYN TRIANA MD ([id number]) on 10/09/2023 2:39:06 PM Referred By: Electronically Signed By:KAROLYN TRIANA MD Transcribed By: MUS Signed By Karolyn Triana MD 0 10/09/23 1439 Normal [facility] Lipid Panelon 10-09-2023 LDL Cholesterol,Calculated 94 mg/dL Normal 0-100 [facility] Comment on above: Result Comment: LDL ATP III CLASSIFICATION LDL less than 100 mg/dL Optimal LDL 100-129 mg/dL Near or above optimal LDL 130-159 mg/dL Borderline high LDL 160-189 mg/dL High LDL greater than 189 mg/dL Very high Performed By: #### T SH3 wRFLX, [id number], LIPID ####[facility] Triglyceride w/Reflex 119 mg/dL Normal 0-149 [facility] Comment on above: Result Comment: TRIG ATP III CLASSIFICATION TRIG less than 150 mg/dL Normal TRIG 150-199 mg/dL Borderline high TRIG 200-500 mg/dL High TRIG greater than 500 mg/dL Very high Standard traceable to the Center for Disease Conrtrol and Prevention (CDC) test method. Performed By: #### T SH3 wRFLX, [id number], LIPID ####[place] [address] VLDL CHOLESTEROL 23 mg/dL Normal [facility] Comment on above: Performed By: #### T SH3 wRFLX, [id number], LIPID ####[place] [address] Serum or plasma high density lipoprotein (HDL) cholesterol measurementOrdered By: Julito Wilde on 10-09-2023 Cholesterol in HDL [Mass/Vol] 58 mg/dL Normal 23-92 [facility] Comment on above: HDL CHOL ATP-III CLA SSIFICATION Cardiovascular RiskHDL > or equal to 60 mg/dL LOWHDL < 40 mg/dL HIGH Result Comment: HDL CHOL ATP-III CLASSIFICATION Cardiovascular Risk HDL > or equal to 60 mg/dL LOW HDL < 40 mg/dL HIGH Performed By: #### T SH3 wRFLX, [id number], LIPID ####[place] [address] Serum or plasma total choles terol/high density lipoprotein (HDL) cholesterol mass ratOrdered By: Julito Wilde on 10-09-2023 Cholesterol.total/Choles terol in HDL [Mass ratio] 3.0 {ratio} Normal <5.0 [facility] Comment on above: Performed By: #### T SH3 wRFLX, [id number], LIPID ####[facility] [place] [address] [facility] Thyroid Stim Hormone w/Rflxo n 10-09-2023 Thyroid Stim Hormone w/Rflx 3.37 u[iU]/mL Normal 0.45-5.33 [facility] Comment on above: Performed By: #### T SH3 wRFLX, [id number], LIPID ####[place] [address] [place] [address] [facility] Thyrotropin [Units/volume] i n Serum or PlasmaOrdered By: Julito Wilde on 10-09-2023 TSH Qn 3.37 m[IU]/L 0.45-5.33 [facility] Triglyceride [Mass/volume] i n Serum or PlasmaOrdered By: Julito Wilde on 10-09-2023 Triglyceride [Mass/Vol] 119 mg/dL 0-149 [facility] Comment on above: TRIG ATP III CLASSIF ICATIONTRIG less than 150 mg/dL NormalTRIG 150-199 mg/dL Borderline highTRIG 200-500 mg/dL High TRIG greater than 500 mg/dL Very highStandard traceable to the Center for Disease Conrtrol and Prevention (CDC) test method. Vitamin D 25 Hydroxy Totalon 10-09-2023 Vitamin D 25 Hydroxy Total 37.9 ng/mL Normal 30-100 [facility] Comment on above: Result Comment: DAMIAN MIN D STATUS 25(OH)VITAMIN D RANGE (ng/mL) Deficient <20 Insufficient 20 to <30 Sufficient 30 to 100 Reference: Julián MF,Julio NC, Valencia-Alvino ADDISON, et al. Evaluation,treatment, and prevention of vitamin D deficiency; an Endocrine Society clinical practice guideline. JCEM. 2010; 96(7):1911-30. PERFORMED BY: [facility] [address] [place] [address] PATHOLOGIST STRAIGHT TOOTH GEAR GENERATOR OPERATOR MIKI PEPPER M.D. Performed By: #### T SH3 wRFLX, [id number], LIPID ####[place] [address] [place] [address] [facility] Vitamin D+Metabolites [Mass/ volume] in Serum or PlasmaOrdered By: Julito Wilde on 10-09-2023 Vitamin D+Metabolites [Mass/Vol] 37.9 ng/mL 30-100 [facility] Comment on above: VITAMIN D STATUS 25( [place])VITAMIN D RANGE (ng/mL) Deficient <20 Insufficient 20 to <30Sufficient 30 to 100Reference: Julián MF,Julio NC, Leonardo ADDISON, et al. Evaluation,treatment, and prevention of vitamin D deficiency; an Endocrine Society clinical practice guideline. JCEM. 2010; 96(7):1911-30. Alanine aminotransferase [En zymatic activity/volume] in Serum or PlasmaOrdered By: Valentin Rangel on 10-08-2023 ALT [Catalytic activity/Vol] 12 U/L Normal 7-52 [facility] Comment on above: Performed By: #### C BC, CMP, ETOH ####[place] [address] [place] [address] [facility] Albumin [Mass/volume] in Ser um or Plasma by Bromocresol green (BCG) dye binding methoOrdered By: Valentin Rangle on 10-08-2023 Albumin BCG dye [Mass/Vol] 3.8 g/dL 3.5-5.7 [facility] Alkaline phosphatase [Enzyma tic activity/volume] in Serum or PlasmaOrdered By: Valentin Rangel on 10-08-2023 ALP [Catalytic activity/Vol] 151 U/L High 34-104 [facility] Comment on above: Performed By: #### C BC, CMP, ETOH ####[place] [address] [place] [address] [facility] Amphetamine Screen Ql (U)Ord ered By: Valentin Rangel on 10-08-2023 Amphetamines Ql (U) Negative Negative [facility] Aspartate aminotransferase [ Enzymatic activity/volume] in Serum or PlasmaOrdered By: Valentin Rangel on 10-08-2023 AST [Catalytic activity/Vol] 13 U/L Normal 13-39 [facility] Comment on above: Performed By: #### C BC, CMP, ETOH ####[place] [address] [place] [address] [facility] Automated basophil %Ordered By: Valentin Rangel on 10-08-2023 Basophils/100 WBC (Bld) 0.5 % Normal . [facility] Comment on above: Performed By: #### C BC, CMP, ETOH ####[address] Automated basophil countOrde red By: Valentin Rangel on 10-08-2023 Basophils (Bld) [#/Vol] 0.1 10*3/uL Normal 0.0-0.2 [facility] Comment on above: Result Comment: PERF ORMED BY: [facility] [address] [place] [address] PATHOLOGIST STRAIGHT TOOTH GEAR GENERATOR OPERATOR MIKI PEPPER M.D. Performed By: #### C BC, CMP, ETOH ####[address] Automated blood monocyte cou ntOrdered By: Valentin Rangel on 10-08-2023 Monocytes (Bld) [#/Vol] 0.8 10*3/uL Normal 0.0-0.8 [facility] Comment on above: Performed By: #### C BC, CMP, ETOH ####[address] Automated eosinophil %Ordere d By: Valentin Rangel on 10-08-2023 Eosinophils/100 WBC (Bld) 0.0 % Normal . [facility] Comment on above: Performed By: #### C BC, CMP, ETOH ####[address] Automated eosinophil countOr dered By: Valentin Rangel on 10-08-2023 Eosinophils (Bld) [#/Vol] 0.0 10*3/uL Normal 0.0-0.45 [facility] Comment on above: Performed By: #### C BC, CMP, ETOH ####[address] Automated erythrocytes count in urine sediment (number/area)Ordered By: Valentin Rangel on 10-08-2023 RBC Auto (Urine sed) [#/Area] 1-2 [HPF] 0-4 [facility] Automated leukocytes count i n urine sediment (number/area)Ordered By: Valentin Rangel on 10-08-2023 WBC Auto (Urine sed) [#/Area] 3-4 [HPF] 0-4 [facility] Automated monocyte %Ordered By: Valentin Rangel on 10-08-2023 Monocytes/100 WBC (Bld) 4.9 % Normal . [facility] Comment on above: Performed By: #### C BC, CMP, ETOH ####[facility] [id number] Automated neutrophil %Ordere d By: Valentin Rangel on 10-08-2023 Neutrophils/100 WBC (Bld) 87.2 % Normal . [facility] Comment on above: Performed By: #### C BC, CMP, ETOH ####[facility] [id number] Automated urine color determ inationOrdered By: Valentin Rangel on 10-08-2023 Color (U) Yellow Normal Yellow [facility] Comment on above: Order Comment: Name Collection Type:: Clean-Voided Midstream Performed By: #### A DDONUAPLUS, UHCG, URDS #### [facility] [address] Barbiturates [Presence] in U rine by Screen methodOrdered By: Valentin Rangel on 10-08-2023 Barbiturates Screen Ql (U) Negative Negative [facility] Benzodiazepines Screen Ql (U )Ordered By: Valentin Rangel on 10-08-2023 Benzodiazepines Ql (U) Negative Negative [facility] Benzoylecgonine [Presence] i n Urine by Screen methodOrdered By: Valentin Rangel on 10-08-2023 Benzoylecgonine Screen Ql (U) Negative Negative [facility] Bilirubin Test strip Ql (U)O rdered By: Valentin Rangel on 10-08-2023 Bilirubin Ql (U) Negative Negative [facility] Bilirubin.total [Mass/volume ] in Serum or PlasmaOrdered By: Valentin Rangel on 10-08-2023 Bilirubin [Mass/Vol] 0.5 mg/dL Normal 0.3-1.0 [facility] Comment on above: Performed By: #### C BC, CMP, ETOH ####[place] [id number] [facility] Calcium [Mass/volume] in Ser um or PlasmaOrdered By: Valentin Rangel on 10-08-2023 Calcium [Mass/Vol] 9.0 mg/dL Normal 8.6-10.3 [facility] Comment on above: Performed By: #### C BC, CMP, ETOH ####[place] [id number] [facility] Cannabinoids [Presence] in U rine by Screen methodOrdered By: Valentin Rangel on 10-08-2023 Cannabinoids Screen Ql (U) Negative Negative [facility] Comment on above: These are unconfirme d results and should not be used for legal purposes. Drug Cut-Off Concentration: AMPH 1000 ng/mL MIKE 200 ng/mL RAYMUNDO 200 ng/mL COCM 300 ng/mL OP 300 ng/mL PCP 25 ng/mL THC 20 ng/mL Carbon dioxide, total [Moles /volume] in Serum or PlasmaOrdered By: Valentin Rangel on 10-08-2023 CO2 [Moles/Vol] 28.0 mmol/L Normal 21.0-31.0 [facility] Comment on above: Performed By: #### C BC, CMP, ETOH ####[place] [id number] [facility] Chloride [Moles/volume] in S loreta or PlasmaOrdered By: Valentin Rangel on 10-08-2023 Chloride [Moles/Vol] 109 mmol/L High 98-107 [facility] Comment on above: Performed By: #### C BC, CMP, ETOH ####[place] [id number] [facility] Complete Blood Count Auto Di ffon 10-08-2023 Mean Corpuscular HGB Conc 32.4 g/dL Normal 32.0-35.0 [facility] Comment on above: Performed By: #### C BC, CMP, ETOH ####[place] [id number] [facility] Monocytes/100 WBC (Bld) 15.49 % Normal 0.00-20.00 [facility] Comment on above: Performed By: #### C BC, CMP, ETOH ####[address] NRBC% 0.0 /100{WBC} Normal 0-0.5 [facility] Comment on above: Performed By: #### C BC, CMP, ETOH ####[place] [id number] [facility] Comprehensive Metabolic Pane mariama 10-08-2023 Albumin [Mass/Vol] 3.8 g/dL Normal 3.5-5.7 [facility] Comment on above: Performed By: #### C BC, CMP, ETOH ####[address] Creatinine Clr Calc Pharmacy 85.95 Normal [facility] Comment on above: Result Comment: PERF ORMED BY: [facility] [address] [place] [address] PATHOLOGIST STRAIGHT TOOTH GEAR GENERATOR OPERATOR MIKI PEPPER M.D. Performed By: #### C BC, CMP, ETOH ####[address] GFR/1.73 sq M.predicted MDRD (S/P/Bld) [Vol rate/Area] 54.741 mL/min/{1.73_m2} Normal [facility] Comment on above: Performed By: #### C BC, CMP, ETOH ####[address] Creatinine [Mass/volume] in Serum or PlasmaOrdered By: Valentin Rangel on 10-08-2023 Creatinine [Mass/Vol] 1.22 mg/dL High 0.60-1.20 [facility] Comment on above: Performed By: #### C BC, CMP, ETOH ####[address] Dipstick and Microscopicon 0 10-08-2023 Appearance (U) Clear Normal Clear [facility] Comment on above: Order Comment: Name Collection Type:: Clean-Voided Midstream Performed By: #### A DDONUAPLUS, UHCG, URDS #### [address] Bacteria,Urine None Seen Normal None Seen [facility] Comment on above: Order Comment: Name Collection Type:: Clean-Voided Midstream Performed By: #### A DDONUAPLUS, UHCG, URDS #### [address] Bilirubin,Urine Negative Normal Negative [facility] Comment on above: Order Comment: Name Collection Type:: Clean-Voided Midstream Performed By: #### A DDONUAPLUS, UHCG, URDS #### [address] Glucose Ql (U) Normal Normal Normal [facility] Comment on above: Order Comment: Name Collection Type:: Clean-Voided Midstream Performed By: #### A DDONUAPLUS, UHCG, URDS #### [address] Hyaline Casts,Urine 0-8 Normal 0-8 [facility] Comment on above: Order Comment: Name Collection Type:: Clean-Voided Midstream Performed By: #### A DDONUAPLUS, UHCG, URDS #### [address] Ketones Ql (U) Negative Normal Negative [facility] Comment on above: Order Comment: Name Collection Type:: Clean-Voided Midstream Performed By: #### A DDONUAPLUS, UHCG, URDS #### [address] Leukocyte esterase Test strip Ql (U) 1+ High Negative [facility] Comment on above: Order Comment: Name Collection Type:: Clean-Voided Midstream Performed By: #### A DDONUAPLUS, UHCG, URDS #### [address] Nitrite,Urine Negative Normal Negative [facility] Comment on above: Order Comment: Name Collection Type:: Clean-Voided Midstream Performed By: #### A DDONUAPLUS, UHCG, URDS #### [place] [address] [place] Occult Blood,Urine 1+ High Negative [facility] Comment on above: Order Comment: Name Collection Type:: Clean-Voided Midstream Performed By: #### A DDONUAPLUS, UHCG, URDS #### [address] Protein,Urine Negative Normal Negative [facility] Comment on above: Order Comment: Name Collection Type:: Clean-Voided Midstream Performed By: #### A DDONUAPLUS, UHCG, URDS #### [place] [address] [place] RBC,Urine 1-2 Normal 0-4 [facility] Comment on above: Order Comment: Name Collection Type:: Clean-Voided Midstream Performed By: #### A DDONUAPLUS, UHCG, URDS #### [address] Specificy [place],Urine 1.013 Normal 1.001-1.030 [facility] Comment on above: Order Comment: Name Collection Type:: Clean-Voided Midstream Performed By: #### A DDONUAPLUS, UHCG, URDS #### [address] Squamous Epithelial Cell,Urine 3-4 High 0-2 [facility] Comment on above: Order Comment: Name Collection Type:: Clean-Voided Midstream Performed By: #### A DDONUAPLUS, UHCG, URDS #### [place] [address] [place] Urobilinogen,Urine Normal Normal Normal [facility] Comment on above: Order Comment: Name Collection Type:: Clean-Voided Midstream Performed By: #### A DDONUAPLUS, UHCG, URDS #### [place] [address] [place] WBC,Urine 3-4 Normal 0-4 [facility] Comment on above: Order Comment: Name Collection Type:: Clean-Voided Midstream Performed By: #### A DDONUAPLUS, UHCG, URDS #### [address] Drug Screen,Urineon 10-08-19 24 Amphetamine Screen,Urine Negative Normal Negative [facility] Comment on above: Performed By: #### A DDONUAPLUS, UHCG, URDS #### [address] Barbiturate Screen,Urine Negative Normal Negative [facility] Comment on above: Performed By: #### A DDONUAPLUS, UHCG, URDS #### [address] Benzodiazepines Screen,Urine Negative Normal Negative [facility] Comment on above: Performed By: #### A DDONUAPLUS, UHCG, URDS #### [address] Cannabinoid Screen,Urine Negative Normal Negative [facility] Comment on above: Result Comment: Thes e are unconfirmed results and should not be used for legal purposes. Drug Cut-Off Concentration: AMPH 1000 ng/mL MIKE 200 ng/mL RAYMUNDO 200 ng/mL COCM 300 ng/mL OP 300 ng/mL PCP 25 ng/mL THC 20 ng/mL PERFORMED BY: [place] [address] PATHOLOGIST STRAIGHT TOOTH GEAR GENERATOR OPERATOR MIKI PEPPER M.D. Performed By: #### A DDONUAPLUS, UHCG, URDS #### [address] Cocaine Screen,Urine Negative Normal Negative [facility] Comment on above: Performed By: #### A DDONUAPLUS, UHCG, URDS #### [address] Opiate Screen,Urine Negative Normal Negative [facility] Comment on above: Performed By: #### A DDONUAPLUS, UHCG, URDS #### [address] Phencyclidine Screen,Urine Negative Normal Negative [facility] Comment on above: Performed By: #### A DDONUAPLUS, UHCG, URDS #### [facility] [address] Erythrocyte distribution wid th [Ratio] by Automated countOrdered By: Valentin Rangel on 10-08-2023 Erythrocyte distribution width (RBC) [Ratio] 16.0 % High 11.9-15.3 [facility] Comment on above: Performed By: #### C BC, CMP, ETOH ####[facility] Erythrocytes [#/volume] in B lood by Automated countOrdered By: Valentin Rangel on 10-08-2023 RBC (Bld) [#/Vol] 5.66 10*6/uL High 3.60-5.00 [facility] Comment on above: Performed By: #### C BC, CMP, ETOH ####[facility] [place] [id number] [facility] Ethanol [Mass/volume] in Ser um or PlasmaOrdered By: Valentin Rangel on 10-08-2023 Ethanol [Mass/Vol] mg/dL Normal [facility] Comment on above: Performed By: #### C BC, CMP, ETOH ####[facility] [place] [id number] [facility] Ethanol [Mass/Vol] TNP [facility] Comment on above: Test not performed Ethyl Alcohol Profileon 09-24 Percent Ethanol Not performed Normal [facility] Comment on above: Result Comment: PERF ORMED BY: [facility] [address] [place] [address] PATHOLOGIST STRAIGHT TOOTH GEAR GENERATOR OPERATOR MIKI PEPPER M.D. Performed By: #### C BC, CMP, ETOH ####[place] [id number] [place] [id number] [place] Glucose [Mass/volume] in Ser um or PlasmaOrdered By: Valentin Rangel on 10-08-2023 Glucose [Mass/Vol] 150 mg/dL High 70-100 [facility] Comment on above: ADA recommended refe rence rangeRandom Glucose Reference Range is dependent on time and content of last meal. Glucose of more than 200 mg/dL in a nonstressed, ambulatory subject supports the diagnosis of Diabetes Mellitus. Result Comment: [place] om Glucose Reference Range is dependent on time and content of last meal. Glucose of more than 200 mg/dL in a nonstressed, ambulatory subject supports the diagnosis of Diabetes Mellitus. ADA recommended reference range Performed By: #### C BC, CMP, ETOH ####[facility] HCG ( test) [place].rapi d Ql (U)Ordered By: Valentin Rangel on 10-08-2023 HCG ( test) Ql (U) Negative [facility] HCG,Urineon 10-08-2023 Beta HCG ( test) Ql (U) Negative Normal [facility] Comment on above: Order Comment: Name Collection Type:: Clean-Voided Midstream Result Comment: PERF ORMED BY: [facility] [address] [place] [address] PATHOLOGIST STRAIGHT TOOTH GEAR GENERATOR OPERATOR MIKI PEPPER M.D. Performed By: #### A DDONUAPLUS, CG, URDS #### [address] Hematocrit [Volume Fraction] of Blood by Automated countOrdered By: Valentin Rangel on 10-08-2023 Hematocrit (Bld) [Volume fraction] 44.2 % Normal 34.0-46.4 [facility] Comment on above: Performed By: #### C BC, CMP, ETOH ####[place] [address] [place] [id number] [facility] Hemoglobin [Mass/volume] in BloodOrdered By: Valentin Rangel on 10-08-2023 Hemoglobin (Bld) [Mass/Vol] 14.3 g/dL Normal 11.8-15.4 [facility] Comment on above: Performed By: #### C BC, CMP, ETOH ####[place] [id number] [place] [id number] [facility] Ketones Auto test strip (U) [Mass/Vol]Ordered By: Valentin Rangel on 10-08-2023 Ketones (U) [Mass/Vol] Negative Negative [facility] Laboratory - UrinalysisOrder ed By: Valentin Rangel on 10-08-2023 Hyaline casts LM Ql (Urine sed) 0-8 [LPF] 0-8 [facility] Leukocytes [#/volume] correc gala for nucleated erythrocytes in Blood by Automated counOrdered By: Valentin Rangel on 10-08-2023 WBC corrected for nucl RBC Auto (Bld) [#/Vol] 16.2 10*3/uL 3.8-11.6 [facility] Leukocytes [#/volume] in Blo od by Automated countOrdered By: Valentin Rangel on 10-08-2023 WBC (Bld) [#/Vol] 16.2 10*3/uL High 3.8-11.6 [facility] Comment on above: Performed By: #### C BC, CMP, ETOH ####[address] Lymphocytes [#/volume] in Bl ood by Automated countOrdered By: Valentin Rangel on 10-08-2023 Lymphocytes (Bld) [#/Vol] 1.2 10*3/uL Normal 1.00-4.8 [facility] Comment on above: Performed By: #### C BC, CMP, ETOH ####[place] [id number] [facility] Lymphocytes/100 leukocytes i n Blood by Automated countOrdered By: Valentin Rangel on 10-08-2023 Lymphocytes/100 WBC (Bld) 7.4 % Normal . [facility] Comment on above: Performed By: #### C BC, CMP, ETOH ####[place] [id number] [place] MCH [Entitic mass] by Automa gala countOrdered By: Valentin Rangel on 10-08-2023 MCH (RBC) [Entitic mass] 25.3 pg Normal 24.7-34.3 [facility] Comment on above: Performed By: #### C BC, CMP, ETOH ####[place] [id number] [facility] MCHC Auto (RBC) [Mass/Vol]Or dered By: Valentin Rangel on 10-08-2023 MCHC (RBC) [Mass/Vol] 32.4 g/dL 32.0-35.0 [facility] MCV [Entitic volume] by Auto mated countOrdered By: Valentin Rangel on 10-08-2023 MCV (RBC) [Entitic vol] 78.0 fL Low 80-100 [facility] Comment on above: Performed By: #### C BC, CMP, ETOH ####[facility] Monocyte distribution width [Entitic volume] in Blood by AutomatedOrdered By: Valentin Rangel on 10-08-2023 Monocyte distribution width Auto (Bld) [Entitic vol] 15.49 % 0.00-20.00 [facility] Neutrophils [#/volume] in Bl ood by Automated countOrdered By: Valentin Rangel on 10-08-2023 Neutrophils (Bld) [#/Vol] 14.1 10*3/uL High 1.8-7.7 [facility] Comment on above: Performed By: #### C BC, CMP, ETOH ####[facility] [address] [place] [address] Nitrite Test strip Ql (U)Ord ered By: Valentin Rangel on 10-08-2023 Nitrite Ql (U) Negative Negative [facility] No Panel InformationOrdered By: Valentin Rangel on 10-08-2023 Estimated GFR (CKD-EPI) 54.741 mL/Min [facility] Creatinine Clearance (Chem 85.95 [facility] Nucleated erythrocytes [Pres ence] in Blood by Automated countOrdered By: Valentin Rangel on 10-08-2023 Nucleated RBC Auto Ql (Bld) 0.0 /100{WBC} 0-0.5 [facility] Opiates [Presence] in Urine by Screen methodOrdered By: Valentin Rangel on 10-08-2023 Opiates Screen Ql (U) Negative Negative [facility] Phencyclidine Screen Ql (U)O rdered By: Valentin Rangel on 10-08-2023 Phencyclidine Ql (U) Negative Negative [facility] Platelet mean volume [Entiti c volume] in Blood by Automated countOrdered By: Valentin Rangel on 10-08-2023 Platelet mean volume (Bld) [Entitic vol] 8.3 fL Normal 6.3-10.7 [facility] Comment on above: Performed By: #### C BC, CMP, ETOH ####[place] [id number] [place] [id number] [facility] Platelets [#/volume] in Bloo d by Automated countOrdered By: Valentin Rangel on 10-08-2023 Platelets (Bld) [#/Vol] 245 10*3/uL Normal 150-450 [facility] Comment on above: Performed By: #### C BC, CMP, ETOH ####[address] Potassium [Moles/volume] in Serum or PlasmaOrdered By: Valentin Rangel on 10-08-2023 Potassium [Moles/Vol] 3.9 mmol/L Normal 3.5-5.1 [facility] Comment on above: Performed By: #### C BC, CMP, ETOH ####[place] [id number] [facility] Protein Auto test strip (U) [Mass/Vol]Ordered By: Valentin Rangel on 10-08-2023 Protein (U) [Mass/Vol] Negative Negative [facility] Protein [Mass/volume] in Ser um or PlasmaOrdered By: Valentin Rangel on 10-08-2023 Protein [Mass/Vol] 6.6 g/dL Normal 6.4-8.9 [facility] Comment on above: Performed By: #### C BC, CMP, ETOH ####[place] [id number] [facility] Serum globulin measurement b y calculation (mass/volume)Ordered By: Valentin Rangel on 10-08-2023 Globulin (S) [Mass/Vol] 2.8 g/dL Normal [facility] Comment on above: Performed By: #### C BC, CMP, ETOH ####[place] [id number] [place] Serum or plasma albumin/glob ulin mass ratioOrdered By: Valentin Rangel on 10-08-2023 Albumin/Globulin [Mass ratio] 1.4 {ratio} Normal [facility] Comment on above: Performed By: #### C CHADD ASHBY, ETOH ####[address] Serum or plasma anion gap de terminationOrdered By: Valentin Rangel on 10-08-2023 Anion gap [Moles/Vol] 8.9 mmol/L Normal 6.0-15.0 [facility] Comment on above: Performed By: #### C CHADD ASHBY, ETOH ####[address] Sodium [Moles/volume] in Ser um or PlasmaOrdered By: Valentin Rangel on 10-08-2023 Sodium [Moles/Vol] 142 mmol/L Normal 136-145 [facility] Comment on above: Performed By: #### C CHADD ASHBY, ETOH ####[address] Specific gravity Auto test s trip (U) [Rel density]Ordered By: Valentin Rangel on 10-08-2023 Specific gravity (U) [Rel density] 1.013 1.001-1.030 [facility] Squamous epithelial cells de tection in urine sediment by light microscopyOrdered By: Valentin Rangel on 10-08-2023 Epithelial cells.squamous LM Ql (Urine sed) 3-4 [HPF] 0-2 [facility] Urea nitrogen [Mass/volume] in Serum or PlasmaOrdered By: Valentin Rangel on 10-08-2023 Urea nitrogen [Mass/Vol] 10 mg/dL Normal 7-25 [facility] Comment on above: Performed By: #### C ISMA CMP, ETOH ####[address] Urine bacteria detection by automated methodOrdered By: Valentin Rangel on 10-08-2023 Bacteria Auto Ql (U) None seen None Seen [facility] Urine clarity by refractomet ry automatedOrdered By: Valentin Rangel on 10-08-2023 Clarity Refractometry automated (U) Clear Clear [facility] Urine glucose measurement by automated test strip (mass/volume)Ordered By: Valentin Rangel on 10-08-2023 Glucose Auto test strip (U) [Mass/Vol] Normal mg/dL Normal [facility] Urine hemoglobin detection b y automated test stripOrdered By: Valentin Rangel on 10-08-2023 Hemoglobin Auto test strip Ql (U) 1+ Negative [facility] Urine leukocyte esterase det ection by automated test stripOrdered By: Valentin Rangel on 10-08-2023 Leukocyte esterase Auto test strip Ql (U) 1+ Negative [facility] Urine pH measurement by auto mated test stripOrdered By: Valentin Rangel on 10-08-2023 pH (U) 5.5 [pH] Normal 5.0-9.0 [facility] Comment on above: Order Comment: Name Collection Type:: Clean-Voided Midstream Performed By: #### A DDONUAPLUS, UHCG, URDS #### [address] Urobilinogen Auto test strip (U) [Mass/Vol]Ordered By: Valentin Rangel on 10-08-2023 Urobilinogen (U) [Mass/Vol] Normal mg/dL Normal [facility] Vital Signs Date Time Vital Sign Value Performing Clinician Krystal guillermo 12-21-2023 14:48-0400 Diastolic blood pressure 72 mm[Hg] [facility] [employer] Work Phone: [facility] 12-21-2023 14:48-0400 Heart rate 104 /min [facility] [employer] Work Phone: [facility] 12-21-2023 14:48-0400 SaO2% (BldA) [Mass fraction] 98 % [facility] [employer] Work Phone: [facility] 12-21-2023 14:48-0400 Systolic blood pressure 124 mm[Hg] [facility] [employer] Work Phone: [facility] 12-21-2023 13:33-0400 Respiratory rate 18 /min [facility] Work Phone: [facility] 12-21-2023 12:32-0400 Body height 172.72 cm [facility] Work Phone: [facility] 12-21-2023 12:32-0400 Body temperature 98.3 [degF] [facility] Work Phone: [facility] 12-21-2023 12:32-0400 Body weight 154 kg [facility] Work Phone: [facility] 11-06-2023 15:52-0400 Body height 172.72 cm [facility] Work Phone: [facility] 11-06-2023 15:52-0400 Body mass index (BMI) [Ratio] 49.7 kg/m2 [facility] Work Phone: [facility] 11-06-2023 15:52-0400 Body temperature 98 [degF] [facility] Work Phone: [facility] 11-06-2023 15:52-0400 Body weight 148.32 kg [facility] Work Phone: [facility] 11-06-2023 15:52-0400 Diastolic blood pressure 93 mm[Hg] [facility] Work Phone: [facility] 11-06-2023 15:52-0400 Heart rate 114 /min [facility] Work Phone: [facility] 11-06-2023 15:52-0400 Respiratory rate 18 /min [facility] Work Phone: [facility] 11-06-2023 15:52-0400 SaO2% (BldA) [Mass fraction] 99 % [facility] Work Phone: [facility] 11-06-2023 15:52-0400 Systolic blood pressure 149 mm[Hg] [facility] Work Phone: [facility] 2023 12:32-0400 Body height 172.72 cm [facility] Work Phone: [facility] 2023 12:32-0400 Body mass index (BMI) [Ratio] 49.8 kg/m2 [facility] Work Phone: [facility] 2023 12:32-0400 Body temperature 96 [degF] [facility] Work Phone: [facility] 2023 12:32-0400 Body weight 148.77 kg [facility] Work Phone: [facility] 2023 12:32-0400 Heart rate 133 /min [facility] Work Phone: [facility] 2023 12:32-0400 Respiratory rate 18 /min [facility] Work Phone: [facility] 2023 12:32-0400 SaO2% (BldA) [Mass fraction] 98 % [facility] Work Phone: [facility] 10-11-2023 07:30-0400 Body temperature 97.5 [degF] [facility] Work Phone: [facility] 10-11-2023 07:30-0400 Diastolic blood pressure 92 mm[Hg] [facility] Work Phone: [facility] 10-11-2023 07:30-0400 Heart rate 105 /min [facility] Work Phone: [facility] 10-11-2023 07:30-0400 Respiratory rate 16 /min [facility] Work Phone: [facility] 10-11-2023 07:30-0400 SaO2% (BldA) [Mass fraction] 98 % [facility] Work Phone: [facility] 10-11-2023 07:30-0400 Systolic blood pressure 157 mm[Hg] [facility] Work Phone: [facility] 10-09-2023 14:15-0400 Body height 172.72 cm [facility] Work Phone: [facility] 10-08-2023 15:45-0400 Body weight 144.27 kg [facility] Work Phone: [facility] 10-08-2023 15:10-0400 Diastolic blood pressure 75 mm[Hg] [facility] Work Phone: [facility] 10-08-2023 15:10-0400 Heart rate 106 /min [facility] Work Phone: [facility] 10-08-2023 15:10-0400 Respiratory rate 18 /min [facility] Work Phone: [facility] 10-08-2023 15:10-0400 SaO2% (BldA) [Mass fraction] 97 % [facility] Work Phone: [facility] 10-08-2023 15:10-0400 Systolic blood pressure 138 mm[Hg] [facility] Work Phone: [facility] 10-08-2023 12:19-0400 Body temperature 97.8 [degF] [facility] Work Phone: [facility] 10-08-2023 12:15-0400 Body height 172.72 cm [facility] Work Phone: [facility] 10-08-2023 12:15-0400 Body weight 145.5 kg [facility] Work Phone: [facility] Encounters Encounter Date Encounter Type Care Provider Facility Start: 03-29-2024 ambulatory Julito vazquezility:[facility] Start: 03-07-2024 End: 03-07-2024 ambulatory LUCIOGIA BROWN Not Available Start: 02-17-2024 End: 02-17-2024 ambulatory GARRETT GEE Not Available Start: 02-01-2024 End: 02-01-2024 ambulatory PHYSICIAN SANCHEZ [facility] Work Phone: Start: 02-01-2024 End: 02-01-2024 Patient encounter procedure PHYSICIAN SANCHEZ [facility] [place] Work Phone: Start: 01-26-2024 Registered Recurring PHYSICIAN SANCHEZ [facility] Start: 01-25-2024 End: 01-25-2024 ambulatory LALO PECK Not Available Start: 01-14-2024 End: 01-14-2024 ambulatory GARRETT GEE Not Available Start: 01-06-2024 End: 01-06-2024 ambulatory GARRETT GEE Not Available Start: 12-21-2023 End: 12-21-2023 Emergency department patient visit [facility] Work Phone: [facility] Work Phone: Start: 12-10-2023 Registered Recurring [facility] Work Phone: [facility] Start: 11-06-2023 End: 11-06-2023 ambulatory [facility] Work Phone: [facility] Work Phone: Start: 11-06-2023 End: 11-06-2023 Patient encounter procedure [facility] Work Phone: [facility] [place] Work Phone: Start: 11-04-2023 Registered Recurring [facility] Work Phone: [facility] Start: 2023 End: 2023 ambulatory [facility] Work Phone: [facility] Work Phone: Start: 2023 End: 2023 Patient encounter procedure [facility] [employer] [facility] Work Phone: [facility] [place] Work Phone: Start: 10-09-2023 End: 10-11-2023 Non-patient / Non-visit [facility] Work Phone: [facility] Work Phone: Start: 10-08-2023 End: 10-11-2023 Evaluation and management of inpatient [facility] [employer] Work Phone: [facility] Work Phone: Start: 09-23-2023 Registered Recurring [facility] Work Phone: [facility] Start: 08-26-2023 Registered Recurring [facility] Work Phone: [facility] Procedures Date Procedure Procedure Detail Performing Clinician Start: 12-21-2023 [facility] [employer] Work Phone: Plan of Treatment Date Care Activity Detail Author Start: 02-01-2024 MR Unspecified body region [facility] Start: 02-01-2024 MRI of head MR head/brain wo/w con [facility] Start: 10-11-2023 [facility] Start: 10-08-2023 Hospital admission [facility] Patient Education [facility] Work Phone: Patient referral [facility] Work Phone: [facility] Payers Date Payer Category Payer Medicaid [id number] 2023 Unknown [id number] 2023 Self-pay 2018 Medicare [id number] 1975 Unknown [id number] 2.16.84 [id number] 1974 Unknown [id number] 2.16.84 [id number] 1974 Unknown [id number] 2.16.84 [id number] 1974 Unknown [id number] 2.16.84 [id number] 1974 Unknown [id number] 2.16.84 [id number] Medicaid [employer] [id number] [id number] Unknown [id number] 2.16.8 [id number] Unknown [id number] 2.16.8 [id number] Unknown [id number] 2.16.8 [id number] Unknown [id number] 2.16.8 [id number] Social History Date Type Detail Facility Start: 10-08-2023 Tobacco smoking status NHIS Smoker (finding) [facility] Start: 1975 Sex Assigned At Female [facility] Start: 10-09-2023 End: 2023 Tobacco smoking status NHIS Never smoked tobacco (finding) [facility] Start: 12-21-2023 Tobacco smoking status MNIS Ex-smoker (finding) [facility] NEGATED: Highlighted row [facility] Goals Date Patient Goal Desired Activity /State Functional Status Date Assessment Result Facility 10-11-2023 Functional status Patient at Baseline [facility] Work Phone: Mental Status Date Assessment Result Facility 10-11-2023 Cognitive function Cognitive Sta tus Patient at Baseline [facility] Work Phone: Clinical Notes 10-09-2023 to 10-11-2023 Note Date & Type Note Facility 10-11-2023 Discharge summary Note Date/Time October 11, 2023 6:49am [facility] [address] [place] [address] Discharge Summary Signed Patient: Lucio Gonzalez MR#: [id number] : 1975 Acct:[id number] Age/Sex: 47 / F Adm Date: 4 Loc: 1S Room: [address] [place] [address]: Julito Wilde MD Copies to: Julito Wilde MD [facility]~ Providers Date of Discharge: 10/11/23 Discharging Provider: Julito Wilde Primary Care Provider: [facility] Discharge Diagnosis (1) Major depressive disorder: Final Diagnosis Final Discharge Diagnosis: MDD Summary Hospital Course Hospital course: Ms. Gonzalez is a 47 year old female with a reported history of chronic kidney disease, high blood pressure, depression, anxiety, bipolar disorder, ADHD, anxiety and panic disorder, PTSD who presents for inpatient treatment due to concern for increased depression worsening PTSD and anxiety. Reportedly, patientpresented to the ER for MHP evaluation. Patient stated that she was done with it all. Patient denied any thoughts of SI but stated that she does not trust herself alone and that she is at her breaking point. Patient denied thoughts ofHI or hallucinations. Patient was personally seen by me on the day of the encounter. I reviewed the history and performed the cole elements of the assessment. I formulated the planof care and confirmed this with the medical student as noted below At the time of the interview, she present as anxious and frustrated. Patient states that her time since being admitted has been rough. Patient states thatthe facility is awesome but she thinks that it is not the right fit for her. She came to the hospital because she thought that she needed hospitalized and that she needed more intense care than what she is getting in the outpatient setting. Patient stated that she normally attends a day treatment facility in [place] 3 times a week. [place] different than here. Patient states that she does not think that the [place] [address] is necessarily better than [facility], however she has been frustrated with the careshe has received so far. Patient wishes that she had more one-on-one time with a doctor or therapist and that she had more chances to learn about coping skills. Patient states that she has been very irritable since being here and that she has not been able to receive the as needed medications that she needs as she states that she is allergic to the ones that she was originally given. Patient also states that she has not been able to eat since yesterday due to notbeing allowed to use her own denture cream for her dentures. Patient states that she knows her rights and was seen talking to another patient about how she is not getting help because she is speaking of herself. On further conversation with her after she met with Dr. Nolasco she seemed slightly less irritable. Patient was seen talking to her on the phone in a relatively better mood and was discussing the time that she would be able to meet her during visiting hours. On admission patient was relatively cooperative however she refused to remove her wedding ring. Wedding ring was assessed for safety issues and noted that there was none as it was a band with nothing sharp. Patient was admitted with complaints of increased depression, worsened PTSD, and anxiety off the charts. Patient also appears to have had vague suicidal ideations and plans on admissions but did not endorse any of this today. Patient reported that her depression was moderate at the time of admission but rates it as a 0/10 today. Patient noted that her anxiety was a 10 out of 10 on admission but stated today that it was a 20/10 as she feels like her PTSD is being further triggered as noted above. Past psych history: Reports bipolar disorder, BPD, ADHD, anxiety and panic disorder, PTSD Past hospitalizations: 1 prior hospitalization in [place] Past suicide attempts: Denies suicide attempts Previous medications: States that there are a lot and mentions albuterol inhaler, lamotrigine, Ingrezza, buspirone The course of treatment: The patient was familiar with the mental health therapy services available whileon the unit and was encouraged to participate. Psychotropic medications targeting mood and anxiety were started, and she was provided supportive and reality-oriented therapy. Vraylar was started but said it messed up her BP. Gabapentin was increased to help with anxiety. She felt that her symptoms have improved on the current medication regimen, and she has been compliant with treatment and reported no side effects. Her sleep and appetite were okay. She has been attending groups and described them as helpful in building coping skills. The patient has denied any access to firearms or lethal weapons. She felt better than before coming to the hospital and feels hopeful regarding her future. She understands the importance of outpatient follow-up to ensure the stability of her symptoms. She denied suicidal or homicidal ideation and verbalized the intent to notify the staff if she has such thoughts. No suicidal or self-injurious behaviors occurred during inpatient treatment. She requested PRN Benzos and we discussed risks of BP. She follows up with Courtney Lowe NP and Ron for therapy at [facility]. She denied any symptoms that may pose a threat to herself or others. She described the unit as an excellent place to recover as she did not feel stigmatized. She expresses understanding and says she is better after learning coping skills and the medications prescribed in the inpatient unit. She said she will utilize outpatient resources if she has any SI/HI. The patient described her thoughts as positive and denied hopelessness. She is in good spirits and is at her baseline. She did not meet the criteria for involuntary psychiatric hospitalization. The patient benefited from attending inpatient treatment and was suitable for outpatient follow-up. I explained to the patient that her hospital discharge does not mean her medical care ends here. She needs consistent outpatient follow-up and cognitive behavioral therapyand should communicate from this point on with her outpatient team. Buspar 5 mg PO BID PRN was added to hep with anxiety. Patient's illness, medication side effects, benefits and risks were reviewed with her prior to discharge. The patient voiced understanding of their diagnosis, the medications recommended along with the importance of medication compliance. The patient was counseled not to stop medications without the supervision of a psychiatrist. The patient was counseled that if there was an increase in mental health issues, depression, anxiety, medication side effects, self harm or thoughts of harm to others, the patient was not to harm them self or stop treatment, but to call [facility], 911 or come to the nearest emergency room. The patient also received information regarding advanced mental and medical health directives during this hospitalization to discuss with their outpatient provider. The plan was discussed with the patient, the nurses and thecase management department. The patient voiced agreement with the plan. Discharge disposition: Home with friend. Coordinated via case management. Safe discharge Planning: With the cessation of all suicidal ideation, improvements in mood, and absence of any psychotic symptoms at the time of discharge, aftercare plans were solidified. She was able to formulate a believable Safety Plan. Discharge plans were discussed with the patient and the treatment team. All agreed with the discharge plan. On the day of discharge, she was evaluated and had no complaints. She denied any SI/HI. She agreed to follow up with outpatient treatment as arranged by case management. She had no complications during her stay. Factors to be considered are the chronicity and severity of the symptoms and signs, associated comorbidity, and differential diagnosis-motivation to get in treatment, response to treatment, adherence to treatment recommendations, and using skills. The patient's verbal consent was provided. Suicide risk assessment: A thorough review of risk and protective factors was conducted. I discussed with the patient the following recommendations that wouldhelp reduce suicide, which include limiting the number of medications to a 15-day supply with one refill at the time of discharge to avoid potential overdose,consistent outpatient follow-up, preferably within seven days of release, involving supportive family/friends in her care, and her desire to live. We also discussed the availability of outpatient DBT groups, which can be lifesaving. She reports good therapeutic alliance, good response to medication management and therapy, availability of local mental health services and willingness to follow up, lack of suicidal ideation, intent or plan, lack of impulsivity, agitation, or psychotic behavior. The patient is future-oriented and understandsthe importance of outpatient follow-up. Psychiatric experts agree that predicting suicide is impossible, but considering positive factors like family and john, lack of access to firearms, and desire to continue treatment makes her current suicide risk minimal. Given the chronicity of suicidality, we discussed measures to help her with long-term safety. The patient is not suicidal or psychotic now. To help decreaseher suicide risk, as best I can, I am referring her for outpatient treatment andCBT for long-term follow-up to have somewhere to go and someone to manage her assymptoms and stressors develop. This is the best way to keep her alive. So, we discussed a crisis plan for future suicidality: at the first sign of distress, she will call the hotline; if this is not sufficient, she will 911, then call family members or friends; ultimately, she will come to the ER. Violence Risk Assessment: Chronic: Gender: lower than males Modifiable: good response to treatment, good therapeutic alliance, availability of local mental health services and willingness to follow up, lack of homicidal ideation (intent or plan) on the day of discharge and during hospitalization, lack of substance abuse, future oriented. No history of recent violence reported. Furthermore, No access to lethal means as currently have no weapons. No aggressive behavior during hospitalization. She has been social with peers on the unit and has been attending groups. Current Violence Risk Assessment: Low acute risk given known chronic and modifiable risk factors. Patient did not meet criteria for probate and his behavior has been overall appropriate on the unit. She has denied homicidal thoughts and has not exhibitedany aggressive behavior. She is not an acute risk to himself or others evidenced by subjective and objective data during his hospitalization. She is compliant with meds which can improve impulse control and mood. Safety: The patient is not acutely psychotic and is safe to continue treatment on an outpatient basis. The patient was made aware of the 16/02 emergency services of the crisis center. She was advised to call 911 or go to the nearest ER in case of a crisis ( (including having thoughts of harming herself or others). Typical short- and long-term side effects of the proposed medication regimen, including contraindications and clinically significant interactions, were discussed with the patient. Side effects include but not limited to sedation, overdose, rash, movement disorders (TD, EPS), weight gain, and appetite changesand advised the patient not to drive or drink while taking these meds. Patient should reach out to medical provider if any of these side effects occur. Using drugs can increase risk of . We also discussed risk of overdose with this current med regimen. Patient understands that it is impossible to gurantee an outcome with medications. Patient indicates an understanding that benefits outweigh the risks. Continue supportive therapy with some CBT techniques. Psycho-education and compliance counseling were provided. She denies current and is aware to notify her psychiatrist if she becomes due to the risk of harm to the fetus. Avoid taking psychiatric medications with driving. MSE: Orientation: Alert and oriented to person, place, and time. Appearance/Behavior: Fair grooming and hygiene, calm, cooperative, engaged in the interview. Good eye contact. Normal psychomotor activity. Speech: normal rate, rhythm, volume, and tone. Non pressured. Knowledge: Appropriate for age and level of education Mood: okay Affect: reactive, mood-congruent Thought process: linear, logical, and goal-oriented Thought content: No SI/HI. No AVH. No delusions. Does not appear to be responding to internal stimuli. Concentration: Grossly intact based on track during the interview Associations: No loosening of associations Memory: Able to recall recent and remote historical information Insight: Fair, able to appreciate current symptoms and need for outpatient treatment Judgment: fair, agreed to follow treatment recommendations, socially appropriate with interviewer and staff. Time spent discussing smoking cessation with patient: more than 10 minutes Condition Condition at Discharge: Stable Status at Discharge Functional status at discharge: independent ambulation Time Spent with Patient Time spent providing/coordinating discharge services (# min): 88 Exam Physical Exam Vital Signs: Temp Pulse Resp BP Pulse Ox O2 Del Method 98 F 97 18 151/98 H 99 Room Air 10/10/23 20:09 10/10/23 20:09 10/10/23 20:09 10/10/23 20:10/10/23 20:09 10/10/23 20:09 Discharge Plan Discharge Plan Patient Disposition: Home Activity: No Activity Restriction Diet: Regular Additional Instructions: Important Contact Information You can call [facility] at [phone] any time day or night if you have emergent questions or question regarding discharge instructions. If at any time you are feeling an increase inyour psychiatric symptoms, call your physician or behavioral healthcare provider. If any time you have thoughts of harming yourself or others contact one of the following: Call 8-8 (available 16/02) Crisis Text Line (available 16/02) text [facility] to [phone] [facility] Hope Line (available 8 a.m. Midnight) call [phone] ([phone]) Prescriptions: New triamcinolone acetonide 0.1 % Cream 1 applic topical BID 30 Days Qty: 1 0RF gabapentin 300 mg Capsule 300 mg PO TID 15 Days Qty: 45 0RF gabapentin 300 mg Capsule 400 mg PO TID 15 Days Qty: 60 1RF Continued Trulicity 0.75 mg/0.5 mL pen injector 0.75 mg SUBCUT QWEEK buspirone 15 mg tablet 15 mg PO QID Ingrezza 60 mg capsule 60 mg PO DAILY lamotrigine 200 mg tablet 200 mg PO BID prednisone 5 mg tablet 5 mg PO DAILY hydroxychloroquine 200 mg tablet 200 mg PO BID atomoxetine 25 mg capsule 25 mg PO DAILY omeprazole 40 mg capsule,delayed release(DR/EC) 40 mg PO DAILY prazosin 5 mg capsule 5 mg PO TID azelastine 137 mcg (0.1 %) aerosol,spray 1 spray INTRANASAL BID triamcinolone acetonide 0.1 % ointment 1 applic TOPICAL BID albuterol sulfate 90 mcg/actuation HFA aerosol inhaler 2 puff INHALATION Q4HR PRN (Reason: shortness of breath or wheezing) Discontinued gabapentin 100 mg capsule 200 mg PO TID Follow Up: [facility] [Outside] [facility] [Primary Care Provider] - (Contact your PCP with medical needs. ) Documented By: Julito Wilde MD [id number] Signed By: <Electronically signed by Julito Wilde MD> 10/11/23 0655 [facility] Work Phone: [phone]) 297-141003-16-2024 Progress note Author Julito hughes [facility] October 10, 2023 1:08pm Note Date/Time October 10, 2023 10: 50am [facility] [address] [place] [address] Psychiatry Progress Note Signed Patient: Lucio Gonzalez MR#: [id number] : 1975 Acct:[id number] Age/Sex: 47 / F Adm Date: 4 Loc: Room: [address] [place] [address] Type : ADM IN Attending Dr: Julito Wilde MD Copies to: ~ Date of Service: 10/10/2023 Subjective Subjective Narrative: Today patient was found interacting with other patients in the lounge in front of the TV. Patient states that her anxiety and depression are much better today. Patient rates anxiety as a 5.5/10 and depression as 3/10. She feels that they are both much more manageable since gabapentin was increased and she was taken off of Vraylar. Patient stated that Vraylar was affecting her blood pressure and her ability to sleep through the night. She stated that she has been eating minimally but it has not been bad. As noted above patient stated that sleeping was difficult last night due to the Vraylar. She stated that she was waking up every 2 hours. When asked about group sessions, patient stated that she went to about 75% of the sessions today. Patient stated that her goal for today is to go to all the sessions, even if they are not ones she is necessarily interested in, as she would like to socialize with others. Patient states that since being here the sessions have been helping with her social anxiety. Patient also commented on not having the desire to smoke anymore sincebeing here. States that she is going to attempt to go cold turkey even after she is released. Patient denies any SI, HI, hallucinations. Patient was personally seen by me on the day of the encounter. I reviewed the history and performed the cole elements of the assessment. I formulated the planof care and confirmed this with the medical student as noted below Mental Status Exam Appearance: Grossly normal Mental Status: Grossly normal Mood: Anxious, depressed Affect: Flat Attitude: Operative Speech/Movement: Speech clear. Speech and movement normal. Thought Process: Linear, goal oriented Thought Content: Reports anxiety and depression. Denies SI, HI, hallucinations Insight: Improving Judgment: Improving Exam Physical Exam Vital Signs: Temp Pulse Resp BP Pulse Ox O2 Del Method 98.1 F 100 16 137/89 98 Room Air 10/09/23 23:30 10/09/23 23:30 10/09/23 15:30 10/09/23 23:30 10/09/23 23:30 10/09/23 23:30 Assessment/Plan Assessment/Plan (1) Major depressive disorder: Plan Admit to 1S for management of depression and to ensure safety of self due to SI. Atomoxetine 25 mg PO Daily Plaquenil 200 mg PO Daily Lamictal 200 mg PO BID Minipress 5 mg PO TID Buspar 15 mg PO QID Ingrezza 60 mg PO Daily Increase Gabapentin 300 mg PO TID Discontinue Vraylar due to side effects Monitor suicidal behaviors for safety of self (15-minute face check). Targeted symptoms and signs, possible therapeutic benefit, side effect and riskswere discussed. No abnormal movements noted on exam. AIMS is Zero. Involve friends/family members if applicable to coordinate care and ensure appropriate outpatient appointments are scheduled prior to discharge. I have reviewed evaluations by other providers (ER notes, nurses and staff) Documented By: Julito Wilde MD [id number] Signed By: <Electronically signed by Julito Wilde MD> 10/10/23 1308 [facility] Work Phone: [phone]) 243-306503-15-2024 History and physical note Author Julito hughes [facility] October 09, 2023 12:27pm Note Date/Time October 09, 2023 11: 45am [facility] [address] [place] [address] Psychiatry H&P Signed Patient: Lucio Gonzalez MR#: [id number] : 1975 Acct:[id number] Age/Sex: 47 / F Adm Date: 4 Loc: Room: [address] [place] [address] Type: ADM IN Attending Dr: Julito Wilde MD Copies to: Julito Wilde MD [facility]~ Date of Service: 10/09/2023 HPI History of Present Illness History of present illness: Ms. Gonzalez is a 47 year old female with a reported history of chronic kidney disease, high blood pressure, depression, anxiety, bipolar disorder, ADHD, anxiety and panic disorder, PTSD who presents for inpatient treatment due to concern for increased depression worsening PTSD and anxiety. Reportedly, patientpresented to the ER for MHP evaluation. Patient stated that she was done with it all. Patient denied any thoughts of SI but stated that she does not trust herself alone and that she is at her breaking point. Patient denied thoughts ofHI or hallucinations. Patient was personally seen by me on the day of the encounter. I reviewed the history and performed the cole elements of the assessment. I formulated the planof care and confirmed this with the medical student as noted below At the time of the interview, she present as anxious and frustrated. Patient states that her time since being admitted has been rough. Patient states thatthe facility is awesome but she thinks that it is not the right fit for her. She came to the hospital because she thought that she needed hospitalized and that she needed more intense care than what she is getting in the outpatient setting. Patient stated that she normally attends a day treatment facility in [place] 3 times a week. She [place] that the facility [place] is different than here. Patient states that she does not think that the [place] [address] is necessarily better than [facility], however she has been frustrated with the careshe has received so far. Patient wishes that she had more one-on-one time with a doctor or therapist and that she had more chances to learn about coping skills. Patient states that she has been very irritable since being here and that she has not been able to receive the as needed medications that she needs as she states that she is allergic to the ones that she was originally given. Patient also states that she has not been able to eat since yesterday due to notbeing allowed to use her own denture cream for her dentures. Patient states that she knows her rights and was seen talking to another patient about how she is not getting help because she is speaking of herself. On further conversation with her after she met with Dr. Nolasco she seemed slightly less irritable. Patient was seen talking to her on the phone in a relatively better mood and was discussing the time that she would be able to meet her during visiting hours. On admission patient was relatively cooperative however she refused to remove her wedding ring. Wedding ring was assessed for safety issues and noted that there was none as it was a band with nothing sharp. Patient was admitted with complaints of increased depression, worsened PTSD, and anxiety off the charts. Patient also appears to have had vague suicidal ideations and plans on admissions but did not endorse any of this today. Patient reported that her depression was moderate at the time of admission but rates it as a 0/10 today. Patient noted that her anxiety was a 10 out of 10 on admission but stated today that it was a 20/10 as she feels like her PTSD is being further triggered as noted above. Past psych history: Reports bipolar disorder, BPD, ADHD, anxiety and panic disorder, PTSD Past hospitalizations: 1 prior hospitalization in [place] Past suicide attempts: Denies suicide attempts Previous medications: States that there are a lot and mentions albuterol inhaler, lamotrigine, Ingrezza, buspirone Alcohol and Drug Use: Denies alcohol and drug use. Living: House in [place] with Employment: SSDI Review of symptoms: Constitutional: Denies chills and Denies fever(s) Eyes: Denies change in vision ENT: Denies abnormal hearing Cardiovascular: Denies chest pain Respiratory: Reports wheezing. Denies chest congestion and Denies cough Gastrointestinal: Denies change in bowel habits Genitourinary: Denies dysuria Musculoskeletal: Reports muscle pain due to fibromyalgia Integumentary/Breasts: Reports dry skin pacifically psoriasis on her elbows Neurologic: Reports difficulty walking due to fibromyalgia pain. Denies abnormalmovements Psychiatric: Reports anxiety and depression. Denies suicidal ideation, homicidal ideation, and hallucinations Physical exam: Const: Cooperative Nutritional Appearance: Large body habitus Orientation: alert, awake and oriented x3 HEENT: Head normal to inspection, hearing grossly normal bilaterally, external nose normal, face symmetric Eyes: appearance normal, both eyes and all related structures, sclerae normal Neck: normal visual inspection and full ROM Resp: normal respiratory effort, able to speak in complete sentences and symmetric chest movement Cardio: regular rate GI: normal to inspection and non-distended : deferred Skin: no rashes or lesions noted Neuro: CNI: Normal olfaction CNI: normal olfaction CNII: Visual patino intact, CNIII,IV,: EOM intact, no nystagmus. Pupils equal, round, reactive to light and accommodation, CNV: Sensation intact to light touch, CNVII: Raises eyebrows, smile/frown, puff out cheeks symmetrically, CNVIII: Hearing intact bilaterally, CNIX,X: Voice normal, soft palate elevation normal, symmetrical, CNXI: Shoulder shrug strong, equal bilaterally, CNXII: Tongue protrusion midline, movement symmetrical. Extrem: normal to inspection and full ROM Mental Status Exam: Appearance: Grossly normal, slightly disheveled Mental Status: Grossly normal Mood: Anxious Affect: Irritable and agitated Speech and Movement: Speech clear. Speech and movement normal Attitude: Cooperative Thought Process: Linear Thought Content: Reports anxiety and depression. Denies SI, HI, hallucinations. States that PTSD is being triggered due to all the men currently in the psych unit. Insight: Poor Judgment: [facility] [place] toxicity Kidney failure Depression Anxiety Family History (Updated 10/08/23 @ 17:11 by Tisha Quijano, JEAN CARLOS) Other Depression Schizophrenia Social History Smoking Status: Never smoker Substance Use Type: None Social History Comments: lives with , mother in law, and father in law Meds Medications and Allergies Allergies lithium Allergy (Verified 10/08/23 12:20) Kidney Failure Home Medications albuterol sulfate 90 mcg/actuation aerosol inhaler 2 puff inhalation Q4HR PRN shortness of breath or wheezing 10/08/23 [History Confirmed 10/08/23] atomoxetine 25 mg capsule 25 mg PO DAILY 10/08/23 [History Confirmed 10/08/23] azelastine 137 mcg (0.1 %) nasal spray aerosol 1 spray intranasal BID 10/08/23 [History Confirmed 10/08/23] buspirone 15 mg tablet 15 mg PO QID 10/08/23 [History Confirmed 10/08/23] dulaglutide 0.75 mg/0.5 mL subcutaneous pen injector (Trulicity) 0.75 mg subcut QWEEK 10/08/23 [History Confirmed 10/08/23] gabapentin 100 mg capsule 200 mg PO TID 10/08/23 [History Confirmed 10/08/23] hydroxychloroquine 200 mg tablet 200 mg PO BID 10/08/23 [History Confirmed 10/08/23] lamotrigine 200 mg tablet 200 mg PO BID 10/08/23 [History Confirmed 10/08/23] omeprazole 40 mg capsule,delayed release 40 mg PO DAILY 10/08/23 [History Confirmed 10/08/23] prazosin 5 mg capsule 5 mg PO TID 10/08/23 [History Confirmed 10/08/23] prednisone 5 mg tablet 5 mg PO DAILY 10/08/23 [History Confirmed 10/08/23] triamcinolone acetonide 0.1 % topical ointment 1 applic topical BID 10/08/23 [History Confirmed 10/08/23] valbenazine 60 mg capsule (Ingrezza) 60 mg PO DAILY 10/08/23 [History Confirmed 10/08/23] Exam Physical Exam Vital Signs: Temp Pulse Resp BP Pulse Ox O2 Del Method 98.0 F 108 H 18 141/96 H 97 Room Air 10/09/23 07:30 10/09/23 07:30 10/09/23 07:30 10/09/23 07:30 10/09/23 07:30 10/09/23 07:30 Results - Psychiatry Labs 10/08/23 12:31 10/08/23 12:31 Psychiatry Labs: 10/08/23 10/08/23 12:31 13:48 RBC 5.66 H Hgb 14.3 Hct 44.2 MCV 78.0 L MCH 25.3 MCHC 32.4 RDW 16.0 H Plt Count 245 MPV 8.3 Sodium 142 Potassium 3.9 Chloride 109 H Carbon Dioxide 28.0 Anion Gap 8.9 BUN 10 Creatinine 1.22 H Calcium 9.0 Total Bilirubin 0.5 AST 13 ALT 12 Alkaline Phosphatase 151 H Total Protein 6.6 Albumin 3.8 Urine Color Yellow Urine Appearance Clear Urine pH 5.5 Ur Specific [place] 1.013 Urine Protein Negative Urine Glucose (UA) Normal Urine Ketones Negative Urine Occult Blood 1+ H Urine Nitrite Negative Ur Leukocyte Esterase 1+ H Urine RBC 1-2 Urine WBC 3-4 Assessment/Plan (1) Major depressive disorder: Plan Admit to 1S for management of depression and to ensure safety of self due to SI. Atomoxetine 25 mg PO Daily Plaquenil 200 mg PO Daily Lamictal 200 mg PO BID Minipress 5 mg PO TID Buspar 15 mg PO QID Ingrezza 60 mg PO Daily Increase Gabapentin 300 mg PO TID Start Vraylar 1.5 mg PO HS Monitor suicidal behaviors for safety of self (15-minute face check). Recommend attending groups and psychoeducation for building coping skills. Typical short- and long-term side effects of the proposed medication regimen, including contraindications and clinically significant interactions, were discussed with the patient. Side effects include but not limited to sedation, overdose, hypo or hypertension, rash, movement disorders (TD, EPS), weight gain, and appetite changes and advised the patient not to drive or drink while taking these meds. Patient should reach out to medical provider if any of these side effects occur. We also discussed risk of overdose with this current med regimen. Patient voiced understanding of benefits and agreement with treatment plan. Targeted symptoms and signs, possible therapeutic benefit, side effect and riskswere discussed. No abnormal movements noted on exam. AIMS is Zero. Involve friends/family members if applicable to coordinate care and ensure appropriate outpatient appointments are scheduled prior to discharge. I have reviewed evaluations by other providers (ER notes, nurses and staff) Prognosis: Factors to be considered are the chronicity and severity of the symptoms and signs, associated comorbidity, and differential diagnosis-motivation to get in treatment, response to treatment, adherence to treatment recommendations, and using skills. The patient's verbal consent was provided. Documented By: Julito Wilde MD [id number] Signed By: <Electronically signed by Julito Wilde MD> 10/09/23 1227 [facility] Work Phone: Discharge summary Author Julito hughes [facility] October 11, 2023 6:55am Note Date/Time October 11, 2023 6:4 9am [facility] [address] [place] [address] Discharge Summary Signed Patient: Lucio Gonzalez MR#: [id number] : 1975 Acct:[id number] Age/Sex: 47 / F Adm Date: 4 Loc: Room: [address] [place] [address]: Julito Wilde MD Copies to: Julito Wilde MD [facility] [place]~ Providers Date of Discharge: 10/11/23 Discharging Provider: Julito Wilde Primary Care Provider: [facility] Discharge Diagnosis (1) Major depressive disorder: Final Diagnosis Final Discharge Diagnosis: MDD Summary Hospital Course Hospital course: Ms. Gonzalez is a 47 year old female with a reported history of chronic kidney disease, high blood pressure, depression, anxiety, bipolar disorder, ADHD, anxiety and panic disorder, PTSD who presents for inpatient treatment due to concern for increased depression worsening PTSD and anxiety. Reportedly, patientpresented to the ER for MHP evaluation. Patient stated that she was done with it all. Patient denied any thoughts of SI but stated that she does not trust herself alone and that she is at her breaking point. Patient denied thoughts ofHI or hallucinations. Patient was personally seen by me on the day of the encounter. I reviewed the history and performed the cole elements of the assessment. I formulated the planof care and confirmed this with the medical student as noted below At the time of the interview, she present as anxious and frustrated. Patient states that her time since being admitted has been rough. Patient states thatthe facility is awesome but she thinks that it is not the right fit for her. She came to the hospital because she thought that she needed hospitalized and that she needed more intense care than what she is getting in the outpatient setting. Patient stated that she normally attends a day treatment facility in [place] 3 times a week. [place] is different than here. Patient states that she does not think that the [place] [address] is necessarily better than [facility], however she has been frustrated with the careshe has received so far. Patient wishes that she had more one-on-one time with a doctor or therapist and that she had more chances to learn about coping skills. Patient states that she has been very irritable since being here and that she has not been able to receive the as needed medications that she needs as she states that she is allergic to the ones that she was originally given. Patient also states that she has not been able to eat since yesterday due to notbeing allowed to use her own denture cream for her dentures. Patient states that she knows her rights and was seen talking to another patient about how she is not getting help because she is speaking of herself. On further conversation with her after she met with Dr. Nolasco she seemed slightly less irritable. Patient was seen talking to her on the phone in a relatively better mood and was discussing the time that she would be able to meet her during visiting hours. On admission patient was relatively cooperative however she refused to remove her wedding ring. Wedding ring was assessed for safety issues and noted that there was none as it was a band with nothing sharp. Patient was admitted with complaints of increased depression, worsened PTSD, and anxiety off the charts. Patient also appears to have had vague suicidal ideations and plans on admissions but did not endorse any of this today. Patient reported that her depression was moderate at the time of admission but rates it as a 0/10 today. Patient noted that her anxiety was a 10 out of 10 on admission but stated today that it was a 20/10 as she feels like her PTSD is being further triggered as noted above. Past psych history: Reports bipolar disorder, BPD, ADHD, anxiety and panic disorder, PTSD Past hospitalizations: 1 prior hospitalization in [place] Past suicide attempts: Denies suicide attempts Previous medications: States that there are a lot and mentions albuterol inhaler, lamotrigine, Ingrezza, buspirone The course of treatment: The patient was familiar with the mental health therapy services available whileon the unit and was encouraged to participate. Psychotropic medications targeting mood and anxiety were started, and she was provided supportive and reality-oriented therapy. Vraylar was started but said it messed up her BP. Gabapentin was increased to help with anxiety. She felt that her symptoms have improved on the current medication regimen, and she has been compliant with treatment and reported no side effects. Her sleep and appetite were okay. She has been attending groups and described them as helpful in building coping skills. The patient has denied any access to firearms or lethal weapons. She felt better than before coming to the hospital and feels hopeful regarding her future. She understands the importance of outpatient follow-up to ensure the stability of her symptoms. She denied suicidal or homicidal ideation and verbalized the intent to notify the staff if she has such thoughts. No suicidal or self-injurious behaviors occurred during inpatient treatment. She requested PRN Benzos and we discussed risks of BP. She follows up with Courtney Lowe NP and Ron for therapy at [facility]. She denied any symptoms that may pose a threat to herself or others. She described the unit as an excellent place to recover as she did not feel stigmatized. She expresses understanding and says she is better after learning coping skills and the medications prescribed in the inpatient unit. She said she will utilize outpatient resources if she has any SI/HI. The patient described her thoughts as positive and denied hopelessness. She is in good spirits and is at her baseline. She did not meet the criteria for involuntary psychiatric hospitalization. The patient benefited from attending inpatient treatment and was suitable for outpatient follow-up. I explained to the patient that her hospital discharge does not mean her medical care ends here. She needs consistent outpatient follow-up and cognitive behavioral therapyand should communicate from this point on with her outpatient team. Buspar 5 mg PO BID PRN was added to hep with anxiety. Patient's illness, medication side effects, benefits and risks were reviewed with her prior to discharge. The patient voiced understanding of their diagnosis, the medications recommended along with the importance of medication compliance. The patient was counseled not to stop medications without the supervision of a psychiatrist. The patient was counseled that if there was an increase in mental health issues, depression, anxiety, medication side effects, self harm or thoughts of harm to others, the patient was not to harm them self or stop treatment, but to call [facility], 911 or come to the nearest emergency room. The patient also received information regarding advanced mental and medical health directives during this hospitalization to discuss with their outpatient provider. The plan was discussed with the patient, the nurses and thecase management department. The patient voiced agreement with the plan. Discharge disposition: Home with friend. Coordinated via case management. Safe discharge Planning: With the cessation of all suicidal ideation, improvements in mood, and absence of any psychotic symptoms at the time of discharge, aftercare plans were solidified. She was able to formulate a believable Safety Plan. Discharge plans were discussed with the patient and the treatment team. All agreed with the discharge plan. On the day of discharge, she was evaluated and had no complaints. She denied any SI/HI. She agreed to follow up with outpatient treatment as arranged by case management. She had no complications during her stay. Factors to be considered are the chronicity and severity of the symptoms and signs, associated comorbidity, and differential diagnosis-motivation to get in treatment, response to treatment, adherence to treatment recommendations, and using skills. The patient's verbal consent was provided. Suicide risk assessment: A thorough review of risk and protective factors was conducted. I discussed with the patient the following recommendations that wouldhelp reduce suicide, which include limiting the number of medications to a 15-day supply with one refill at the time of discharge to avoid potential overdose,consistent outpatient follow-up, preferably within seven days of release, involving supportive family/friends in her care, and her desire to live. We also discussed the availability of outpatient DBT groups, which can be lifesaving. She reports good therapeutic alliance, good response to medication management and therapy, availability of local mental health services and willingness to follow up, lack of suicidal ideation, intent or plan, lack of impulsivity, agitation, or psychotic behavior. The patient is future-oriented and understandsthe importance of outpatient follow-up. Psychiatric experts agree that predicting suicide is impossible, but considering positive factors like family and john, lack of access to firearms, and desire to continue treatment makes her current suicide risk minimal. Given the chronicity of suicidality, we discussed measures to help her with long-term safety. The patient is not suicidal or psychotic now. To help decreaseher suicide risk, as best I can, I am referring her for outpatient treatment andCBT for long-term follow-up to have somewhere to go and someone to manage her assymptoms and stressors develop. This is the best way to keep her alive. So, we discussed a crisis plan for future suicidality: at the first sign of distress, she will call the hotline; if this is not sufficient, she will 911, then call family members or friends; ultimately, she will come to the ER. Violence Risk Assessment: Chronic: Gender: lower than males Modifiable: good response to treatment, good therapeutic alliance, availability of local mental health services and willingness to follow up, lack of homicidal ideation (intent or plan) on the day of discharge and during hospitalization, lack of substance abuse, future oriented. No history of recent violence reported. Furthermore, No access to lethal means as currently have no weapons. No aggressive behavior during hospitalization. She has been social with peers on the unit and has been attending groups. Current Violence Risk Assessment: Low acute risk given known chronic and modifiable risk factors. Patient did not meet criteria for probate and his behavior has been overall appropriate on the unit. She has denied homicidal thoughts and has not exhibitedany aggressive behavior. She is not an acute risk to himself or others evidenced by subjective and objective data during his hospitalization. She is compliant with meds which can improve impulse control and mood. Safety: The patient is not acutely psychotic and is safe to continue treatment on an outpatient basis. The patient was made aware of the 16/02 emergency services of the crisis center. She was advised to call 911 or go to the nearest ER in case of a crisis ( (including having thoughts of harming herself or others). Typical short- and long-term side effects of the proposed medication regimen, including contraindications and clinically significant interactions, were discussed with the patient. Side effects include but not limited to sedation, overdose, rash, movement disorders (TD, EPS), weight gain, and appetite changesand advised the patient not to drive or drink while taking these meds. Patient should reach out to medical provider if any of these side effects occur. Using drugs can increase risk of . We also discussed risk of overdose with this current med regimen. Patient understands that it is impossible to gurantee an outcome with medications. Patient indicates an understanding that benefits outweigh the risks. Continue supportive therapy with some CBT techniques. Psycho-education and compliance counseling were provided. She denies current and is aware to notify her psychiatrist if she becomes due to the risk of harm to the fetus. Avoid taking psychiatric medications with driving. MSE: Orientation: Alert and oriented to person, place, and time. Appearance/Behavior: Fair grooming and hygiene, calm, cooperative, engaged in the interview. Good eye contact. Normal psychomotor activity. Speech: normal rate, rhythm, volume, and tone. Non pressured. Knowledge: Appropriate for age and level of education Mood: okay Affect: reactive, mood-congruent Thought process: linear, logical, and goal-oriented Thought content: No SI/HI. No AVH. No delusions. Does not appear to be responding to internal stimuli. Concentration: Grossly intact based on track during the interview Associations: No loosening of associations Memory: Able to recall recent and remote historical information Insight: Fair, able to appreciate current symptoms and need for outpatient treatment Judgment: fair, agreed to follow treatment recommendations, socially appropriate with interviewer and staff. Time spent discussing smoking cessation with patient: more than 10 minutes Condition Condition at Discharge: Stable Status at Discharge Functional status at discharge: independent ambulation Time Spent with Patient Time spent providing/coordinating discharge services (# min): 88 Exam Physical Exam Vital Signs: Temp Pulse Resp BP Pulse Ox O2 Del Method 98 F 97 18 151/98 H 99 Room Air 10/10/23 20:09 10/10/23 20:09 10/10/23 20:09 10/10/23 20:09 10/10/23 20:09 10/10/23 20:09 Discharge Plan Discharge Plan Patient Disposition: Home Activity: No Activity Restriction Diet: Regular Additional Instructions: Important Contact Information You can call [facility] at [phone] any time day or night if you have emergent questions or question regarding discharge instructions. If at any time you are feeling an increase inyour psychiatric symptoms, call your physician or behavioral healthcare provider. If any time you have thoughts of harming yourself or others contact one of the following: Call 98-8 (available 16/02) Crisis Text Line (available 16/02) text [facility]HOPE to [phone] [facility] Hope Line (available 8 a.m. Midnight) call [phone] ([phone]) Prescriptions: New triamcinolone acetonide 0.1 % Cream 1 applic topical BID 30 Days Qty: 1 0RF gabapentin 300 mg Capsule 300 mg PO TID 15 Days Qty: 45 0RF gabapentin 300 mg Capsule 400 mg PO TID 15 Days Qty: 60 1RF Continued Trulicity 0.75 mg/0.5 mL pen injector 0.75 mg SUBCUT QWEEK buspirone 15 mg tablet 15 mg PO QID Ingrezza 60 mg capsule 60 mg PO DAILY lamotrigine 200 mg tablet 200 mg PO BID prednisone 5 mg tablet 5 mg PO DAILY hydroxychloroquine 200 mg tablet 200 mg PO BID atomoxetine 25 mg capsule 25 mg PO DAILY omeprazole 40 mg capsule,delayed release(DR/EC) 40 mg PO DAILY prazosin 5 mg capsule 5 mg PO TID azelastine 137 mcg (0.1 %) aerosol,spray 1 spray INTRANASAL BID triamcinolone acetonide 0.1 % ointment 1 applic TOPICAL BID albuterol sulfate 90 mcg/actuation HFA aerosol inhaler 2 puff INHALATION Q4HR PRN (Reason: shortness of breath or wheezing) Discontinued gabapentin 100 mg capsule 200 mg PO TID Follow Up: [facility] [Outside] [facility] [Primary Care Provider] - (Contact your PCP with medical needs. ) Documented By: Julito Wilde MD [id number] Signed By: <Electronically signed by Julito Wilde MD> 10/11/23 0655 [facility] Work Phone: Evaluation noteNo assessment information available [facility] Work Phone: Evaluation note* Diagnosis Onset Date Resolution Status Major depressive disorder [place] [facility] Work Phone: Evaluation note* Diagnosis Onset Date Resolution Status Major depressive disorder [place] Sinus congestion noneactive [facility] Work Phone: Evaluation note* Diagnosis Onset Date Resolution Status Major depressive disorder [place] Sinus congestion noneactive Allergic rhinitis noneactive Oral thrush noneactive Candidal skin infection none active [facility] Work Phone: Evaluation note* Diagnosis Onset Date Resolution Status Oral thrush noneactive Candidal skin infection none active [facility] Work Phone: History and physical note Author Julito hughes [facility] October 09, 2023 12:27pm Note Date/Time October 09, 2023 11: 45am [facility] [address] [place] [address] Psychiatry H&P Signed Patient: Lucio Gonzalez MR#: [id number] : 1975 Acct:[id number] Age/Sex: 47 / F Adm Date: 4 Loc: Room: [address] [place] [address] Type: ADM IN Attending Dr: Julito Wilde MD Copies to: Julito Wilde MD [facility]~ Date of Service: 10/09/2023 HPI History of Present Illness History of present illness: Ms. Gonzalez is a 47 year old female with a reported history of chronic kidney disease, high blood pressure, depression, anxiety, bipolar disorder, ADHD, anxiety and panic disorder, PTSD who presents for inpatient treatment due to concern for increased depression worsening PTSD and anxiety. Reportedly, patientpresented to the ER for MHP evaluation. Patient stated that she was done with it all. Patient denied any thoughts of SI but stated that she does not trust herself alone and that she is at her breaking point. Patient denied thoughts ofHI or hallucinations. Patient was personally seen by me on the day of the encounter. I reviewed the history and performed the cole elements of the assessment. I formulated the planof care and confirmed this with the medical student as noted below At the time of the interview, she present as anxious and frustrated. Patient states that her time since being admitted has been rough. Patient states thatthe facility is awesome but she thinks that it is not the right fit for her. She came to the hospital because she thought that she needed hospitalized and that she needed more intense care than what she is getting in the outpatient setting. Patient stated that she normally attends a day treatment facility in [place] 3 times a week. [place] is different than here. Patient states that she does not think that the [place] [address] is necessarily better than [facility], however she has been frustrated with the careshe has received so far. Patient wishes that she had more one-on-one time with a doctor or therapist and that she had more chances to learn about coping skills. Patient states that she has been very irritable since being here and that she has not been able to receive the as needed medications that she needs as she states that she is allergic to the ones that she was originally given. Patient also states that she has not been able to eat since yesterday due to notbeing allowed to use her own denture cream for her dentures. Patient states that she knows her rights and was seen talking to another patient about how she is not getting help because she is speaking of herself. On further conversation with her after she met with Dr. Nolasco she seemed slightly less irritable. Patient was seen talking to her on the phone in a relatively better mood and was discussing the time that she would be able to meet her during visiting hours. On admission patient was relatively cooperative however she refused to remove her wedding ring. Wedding ring was assessed for safety issues and noted that there was none as it was a band with nothing sharp. Patient was admitted with complaints of increased depression, worsened PTSD, and anxiety off the charts. Patient also appears to have had vague suicidal ideations and plans on admissions but did not endorse any of this today. Patient reported that her depression was moderate at the time of admission but rates it as a 0/10 today. Patient noted that her anxiety was a 10 out of 10 on admission but stated today that it was a 20/10 as she feels like her PTSD is being further triggered as noted above. Past psych history: Reports bipolar disorder, BPD, ADHD, anxiety and panic disorder, PTSD Past hospitalizations: 1 prior hospitalization in [place] Past suicide attempts: Denies suicide attempts Previous medications: States that there are a lot and mentions albuterol inhaler, lamotrigine, Ingrezza, buspirone Alcohol and Drug Use: Denies alcohol and drug use. Living: House in [place] with Employment: SSDI Review of symptoms: Constitutional: Denies chills and Denies fever(s) Eyes: Denies change in vision ENT: Denies abnormal hearing Cardiovascular: Denies chest pain Respiratory: Reports wheezing. Denies chest congestion and Denies cough Gastrointestinal: Denies change in bowel habits Genitourinary: Denies dysuria Musculoskeletal: Reports muscle pain due to fibromyalgia Integumentary/Breasts: Reports dry skin pacifically psoriasis on her elbows Neurologic: Reports difficulty walking due to fibromyalgia pain. Denies abnormalmovements Psychiatric: Reports anxiety and depression. Denies suicidal ideation, homicidal ideation, and hallucinations Physical exam: Const: Cooperative Nutritional Appearance: Large body habitus Orientation: alert, awake and oriented x3 HEENT: Head normal to inspection, hearing grossly normal bilaterally, external nose normal, face symmetric Eyes: appearance normal, both eyes and all related structures, sclerae normal Neck: normal visual inspection and full ROM Resp: normal respiratory effort, able to speak in complete sentences and symmetric chest movement Cardio: regular rate GI: normal to inspection and non-distended : deferred Skin: no rashes or lesions noted Neuro: CNI: Normal olfaction CNI: normal olfaction CNII: Visual patino intact, CNIII,IV,: EOM intact, no nystagmus. Pupils equal, round, reactive to light and accommodation, CNV: Sensation intact to light touch, CNVII: Raises eyebrows, smile/frown, puff out cheeks symmetrically, CNVIII: Hearing intact bilaterally, CNIX,X: Voice normal, soft palate elevation normal, symmetrical, CNXI: Shoulder shrug strong, equal bilaterally, CNXII: Tongue protrusion midline, movement symmetrical. Extrem: normal to inspection and full ROM Mental Status Exam: Appearance: Grossly normal, slightly disheveled Mental Status: Grossly normal Mood: Anxious Affect: Irritable and agitated Speech and Movement: Speech clear. Speech and movement normal Attitude: Cooperative Thought Process: Linear Thought Content: Reports anxiety and depression. Denies SI, HI, hallucinations. States that PTSD is being triggered due to all the men currently in the psych unit. Insight: Poor Judgment: Poor [facility] Medical History [place] toxicity Kidney failure Depression Anxiety Family History (Updated 10/08/23 @ 17:11 by Tisha Quijano RN) Other Depression Schizophrenia Social History Smoking Status: Never smoker Substance Use Type: None Social History Comments: lives with , mother in law, and father in law Meds Medications and Allergies Allergies lithium Allergy (Verified 10/08/23 12:20) Kidney Failure Home Medications albuterol sulfate 90 mcg/actuation aerosol inhaler 2 puff inhalation Q4HR PRN shortness of breath or wheezing 10/08/23 [History Confirmed 10/08/23] atomoxetine 25 mg capsule 25 mg PO DAILY 10/08/23 [History Confirmed 10/08/23] azelastine 137 mcg (0.1 %) nasal spray aerosol 1 spray intranasal BID 10/08/23 [History Confirmed 10/08/23] buspirone 15 mg tablet 15 mg PO QID 10/08/23 [History Confirmed 10/08/23] dulaglutide 0.75 mg/0.5 mL subcutaneous pen injector (Trulicity) 0.75 mg subcut QWEEK 10/08/23 [History Confirmed 10/08/23] gabapentin 100 mg capsule 200 mg PO TID 10/08/23 [History Confirmed 10/08/23] hydroxychloroquine 200 mg tablet 200 mg PO BID 10/08/23 [History Confirmed 10/08/23] lamotrigine 200 mg tablet 200 mg PO BID 10/08/23 [History Confirmed 10/08/23] omeprazole 40 mg capsule,delayed release 40 mg PO DAILY 10/08/23 [History Confirmed 10/08/23] prazosin 5 mg capsule 5 mg PO TID 10/08/23 [History Confirmed 10/08/23] prednisone 5 mg tablet 5 mg PO DAILY 10/08/23 [History Confirmed 10/08/23] triamcinolone acetonide 0.1 % topical ointment 1 applic topical BID 10/08/23 [History Confirmed 10/08/23] valbenazine 60 mg capsule (Ingrezza) 60 mg PO DAILY 10/08/23 [History Confirmed 10/08/23] Exam Physical Exam Vital Signs: Temp Pulse Resp BP Pulse Ox O2 Del Method 98.0 F 108 H 18 141/96 H 97 Room Air 10/09/23 07:30 10/09/23 07:30 10/09/23 07:30 10/09/23 07:30 10/09/23 07:30 10/09/23 07:30 Results - Psychiatry Labs 10/08/23 12:31 10/08/23 12:31 Psychiatry Labs: 10/08/23 10/08/23 12:31 13:48 RBC 5.66 H Hgb 14.3 Hct 44.2 MCV 78.0 L MCH 25.3 MCHC 32.4 RDW 16.0 H Plt Count 245 MPV 8.3 Sodium 142 Potassium 3.9 Chloride 109 H Carbon Dioxide 28.0 Anion Gap 8.9 BUN 10 Creatinine 1.22 H Calcium 9.0 Total Bilirubin 0.5 AST 13 ALT 12 Alkaline Phosphatase 151 H Total Protein 6.6 Albumin 3.8 Urine Color Yellow Urine Appearance Clear Urine pH 5.5 Ur Specific [place] 1.013 Urine Protein Negative Urine Glucose (UA) Normal Urine Ketones Negative Urine Occult Blood 1+ H Urine Nitrite Negative Ur Leukocyte Esterase 1+ H Urine RBC 1-2 Urine WBC 3-4 Assessment/Plan (1) Major depressive disorder: Plan Admit to for management of depression and to ensure safety of self due to SI. Atomoxetine 25 mg PO Daily Plaquenil 200 mg PO Daily Lamictal 200 mg PO BID Minipress 5 mg PO TID Buspar 15 mg PO QID Ingrezza 60 mg PO Daily Increase Gabapentin 300 mg PO TID Start Vraylar 1.5 mg PO HS Monitor suicidal behaviors for safety of self (15-minute face check). Recommend attending groups and psychoeducation for building coping skills. Typical short- and long-term side effects of the proposed medication regimen, including contraindications and clinically significant interactions, were discussed with the patient. Side effects include but not limited to sedation, overdose, hypo or hypertension, rash, movement disorders (TD, EPS), weight gain, and appetite changes and advised the patient not to drive or drink while taking these meds. Patient should reach out to medical provider if any of these side effects occur. We also discussed risk of overdose with this current med regimen. Patient voiced understanding of benefits and agreement with treatment plan. Targeted symptoms and signs, possible therapeutic benefit, side effect and riskswere discussed. No abnormal movements noted on exam. AIMS is Zero. Involve friends/family members if applicable to coordinate care and ensure appropriate outpatient appointments are scheduled prior to discharge. I have reviewed evaluations by other providers (ER notes, nurses and staff) Prognosis: Factors to be considered are the chronicity and severity of the symptoms and signs, associated comorbidity, and differential diagnosis-motivation to get in treatment, response to treatment, adherence to treatment recommendations, and using skills. The patient's verbal consent was provided. Documented By: Julito Wilde MD [id number] Signed By: <Electronically signed by Julito Wilde MD> 10/09/23 1227 [facility] Work Phone: Hospital Discharge instructions Additional Instructions Elevate legs above heart at home Return if symptoms are worse Follow-up private physician for recheck in 1 week.[facility] Work Phone: Progress note Author Julito hughes [facility] October 10, 2023 1:08pm Note Date/Time October 10, 2023 10: 50am [facility] [address] [place] [address] Psychiatry Progress Note Signed Patient: Lucio Gonzalez MR#: [id number] : 1975 Acct:[id number] Age/Sex: 47 / F Adm Date: 4 Loc: Room: [address] [place] [address] Type : ADM IN Attending Dr: Julito Wilde MD Copies to: ~ Date of Service: 10/10/2023 Subjective Subjective Narrative: Today patient was found interacting with other patients in the lounge in front of the TV. Patient states that her anxiety and depression are much better today. Patient rates anxiety as a 5.5/10 and depression as 3/10. She feels that they are both much more manageable since gabapentin was increased and she was taken off of Vraylar. Patient stated that Vraylar was affecting her blood pressure and her ability to sleep through the night. She stated that she has been eating minimally but it has not been bad. As noted above patient stated that sleeping was difficult last night due to the Vraylar. She stated that she was waking up every 2 hours. When asked about group sessions, patient stated that she went to about 75% of the sessions today. Patient stated that her goal for today is to go to all the sessions, even if they are not ones she is necessarily interested in, as she would like to socialize with others. Patient states that since being here the sessions have been helping with her social anxiety. Patient also commented on not having the desire to smoke anymore sincebeing here. States that she is going to attempt to go cold turkey even after she is released. Patient denies any SI, HI, hallucinations. Patient was personally seen by me on the day of the encounter. I reviewed the history and performed the cole elements of the assessment. I formulated the planof care and confirmed this with the medical student as noted below Mental Status Exam Appearance: Grossly normal Mental Status: Grossly normal Mood: Anxious, depressed Affect: Flat Attitude: Operative Speech/Movement: Speech clear. Speech and movement normal. Thought Process: Linear, goal oriented Thought Content: Reports anxiety and depression. Denies SI, HI, hallucinations Insight: Improving Judgment: Improving Exam Physical Exam Vital Signs: Temp Pulse Resp BP Pulse Ox O2 Del Method 98.1 F 100 16 137/89 98 Room Air 10/09/23 23:30 10/09/23 23:30 10/09/23 15:30 10/09/23 23:30 10/09/23 23:30 10/09/23 23:30 Assessment/Plan Assessment/Plan (1) Major depressive disorder: Plan Admit to 1S for management of depression and to ensure safety of self due to SI. Atomoxetine 25 mg PO Daily Plaquenil 200 mg PO Daily Lamictal 200 mg PO BID Minipress 5 mg PO TID Buspar 15 mg PO QID Ingrezza 60 mg PO Daily Increase Gabapentin 300 mg PO TID Discontinue Vraylar due to side effects Monitor suicidal behaviors for safety of self (15-minute face check). Targeted symptoms and signs, possible therapeutic benefit, side effect and riskswere discussed. No abnormal movements noted on exam. AIMS is Zero. Involve friends/family members if applicable to coordinate care and ensure appropriate outpatient appointments are scheduled prior to discharge. I have reviewed evaluations by other providers (ER notes, nurses and staff) Documented By: Julito Wilde MD [id number] Signed By: <Electronically signed by Julito Wilde MD> 10/10/23 1308 [facility] Work Phone: Chief Complaint and Reason for Visit Chief Complaint mhp Chief Complaint BH mhp mhp Reason for Visit Major depressive dis order Chief Complaint BH mhp mhp Sinus congestion Reason for Visit Major depressive dis order Sinus congestion Chief Complaint mhp mhp Sinus congestion BH Sores in mouth Reason for Visit Major depressive dis order Sinus congestion Allergic rhinitis Oral thrush Candidal skin infection Chief Complaint mhp mhp Sinus congestion Sores in mouth BH bilateral leg swelling Reason for Visit Major depressive dis order Sinus congestion Allergic rhinitis Oral thrush Candidal skin infection Chief Complaint Sores in mouth bilateral leg swelling BH r27.0 g40.909 Reason for Visit Oral thrush Candidal skin infection Advance Directives No Advanced Directives Records Found Advance Directive Response Recorded Date/ Time Advance Directives No October 07 12:32pm Summary Purpose Family History No Family History Records Found Additional Source Comments Care Teams (unrecognized sec tion and content) Team Status: Active Member Role Status Dates PHYSICIAN NO FAMILY Primary Care Provider Active Team Status: Inactive Member Role Status Dates [facility] Primary Care Provider Activ e Start: October 08, 2023 End: October 11, 2023 Valentin Rangel DO Emergency Provider Active Start: October 08, 2023 End: October 11, 2023 Julito Wilde MD Admit Provide r, Attending Provider Active Start: October 08, 2023 End: October 11, 2023 Team Status: Active Member Role Status Dates [facility] Primary Care Provider Activ e Start: October 09, 2023 End: October 11, 2023 Valentin Rangel DO Emergency Provider Active Start: October 09, 2023 End: October 11, 2023 Julito Wilde MD Admit Provide r, Attending Provider, Other Provider Active Start: October 09, 2023 End: October 11, 2023 Team Status: Inactive Member Role Status Dates [facility] Primary Care Provider Activ e Start: 2023 End: 2023 Maylin Presley APRN Attending Provider Active Start: 2023 End: 2023 Team Status: Inactive Member Role Status Dates [facility] Primary Care Provider Activ e Start: November 06, 2023 End: November 06, 2023 SRI Araujo Attending Provider Active S tart: November 06, 2023 End: November 06, 2023 Team Status: Active Member Role Status Dates [facility] Primary Care Provider Activ e Start: December 10, 2023 Julito Wilde MD Attending Provider Active Start: December 10, 2023 Team Status: Inactive Member Role Status Dates PHYSICIAN [facility] Primary Care Provider Active Start: December 21, 2023 End: December 21, 2023 Reina Unger MD Emergency Provider Active Star t: December 21, 2023 End: December 21, 2023 Team Status: Active Member Role Status Dates [facility] Primary Care Provider Activ e Team Status: Active Member Role Status Dates [facility] Primary Care Provider Activ e Start: November 04, 2023 Julito Wilde MD Attending Provider Active Start: November 04, 2023 Team Status: Active Member Role Status Dates [facility] Primary Care Provider Activ e Start: October 08, 2023 Valentin Rangel DO Emergency Provider Active Start: October 08, 2023 Julito Wilde MD Admit Provide r, Attending Provider Active Start: October 08, 2023 Team Status: Active Member Role Status Dates [facility] Primary Care Provider Activ e Start: August 26, 2023 Julito Wilde MD Attending Provider Active Start: August 26, 2023 Team Status: Active Member Role Status Dates [facility] Primary Care Provider Activ e Start: October 09, 2023 Valentin Rangel DO Emergency Provider Active Start: October 09, 2023 Julito Wilde MD Admit Provide r, Attending Provider, Other Provider Active Start: October 09, 2023 Team Status: Active Member Role Status Dates [facility] Primary Care Provider Activ e Start: September 23, 2023 Julito Wilde MD Attending Provider Active Start: September 23, 2023 Team Status: Active Member Role Status Dates [facility] Primary Care Provider Activ e Start: January 26, 2024 Julito Wilde MD Attending Provider Active Start: January 26, 2024 Team Status: Inactive Member Role Status Dates PHYSICIAN NO FAMILY Primary Care Provider Active Start: February 01, 2024 End: February 01, 2024 Garrett Gee DO Attending Provider Active Start: February 01, 2024 End: February 01, 2024 Goals (unrecognized section and content) Goals may be documented in a n alternate sectionGoals may be documented in an alternate section INFORMATION SOURCE (unrecogn ized section and content) DATE CREATED AUTHOR 03/09/2024 [facility] DATE CREATED AUTHOR AUTHOR'S ORGANIZ ATION 03/30/2024 [facility] FOR RECORDS PERTAINING TO PATIENTS WHO ARE OR HAVE BEEN ENROLLED IN A CHEMICAL DEPENDENCY/SUBSTANCEABUSE PROGRAM, SOME INFORMATION MAY BE OMITTED. This clinical summary was aggregated from multiple sources. Caution should be exercised in using it in the provision of clinical care. This summary normalizes information from multiple sources, and as a consequence, information in this document may materially change the coding, format and clinical context of patient data. In addition, data may be omitted in some cases. CLINICAL DECISIONS SHOULD BE BASED ON THE PRIMARY CLINICAL RECORDS. [employer] provides no warranty or guarantee of the accuracy or completeness of information in this document.
== END 2024-04-09 12:44 | disposition left against medical advice (07) ==
LOC: ER 11:49
PROVIDERS: Emergency Provider Emergency Medicine Emergency Medical Services
DX: Z53.21 Procedure and treatment not carried out due to patient leaving prior to being seen by health care provider (principal)
CPT/HCPCS: 99281